=== PATIENT | male | born 1975 | race Two or more races ===

== ENCOUNTER 2016-12-18 10:16 | Emergency (ER) | payer OTHER ==
[~2016-12-18] VITALS: Ht 162.6 cm; Wt 105.0 kg
[~2016-12-18 10:16] MED LIST: LANT3I SC; NAPR-688 PO
[2016-12-18 10:25] VITALS: Ht 162.6 cm; Wt 105.0 kg
[2016-12-18] MEDS ORDERED: NITROGLYCERIN 2% 1 GM OINT PKT TD STA (10:40)
[2016-12-18] MEDS ORDERED: NITROGLYCERIN (SL) 0.4 MG TAB SL PRN ×2 (11:00→14:00)
[2016-12-18 11:20] LABS: BASOPHILS % 0.3 % (0.0-2.0); EOSINOPHILS % 0.3 % (0.0-7.0); HEMATOCRIT 44.4 % (42.0-52.0); LYMPHOCYTES # 1.6 10^3/ul (0.8-2.9); LYMPHOCYTES % 16.5 % (15.0-51.0); MEAN CORPUSCULAR HEMOGLOBIN 24.4 pg (29.0-33.0); MEAN CORPUSCULAR HGB CONC 31.5 g/dl (32.0-37.0); MEAN CORPUSCULAR VOLUME 77.5 fl (82.0-101.0); MEAN PLATELET VOLUME 8.8 fl (7.4-10.4); MONOCYTE # 0.4 10^3/ul (0.3-0.9); MONOCYTES % 3.8 % (0.0-11.0); NEUTROPHIL # 7.7 10^3/ul (1.6-7.5); NEUTROPHILS % 78.9 % (39.0-77.0); PLATELET COUNT 328 10^3/UL (140-415); RED BLOOD COUNT 5.73 10^6/ul (4.70-6.10); RED CELL DISTRIBUTION WIDTH 14.4 % (11.5-14.5); WHITE BLOOD COUNT 9.8 10^3/ul (4.8-10.8)
[2016-12-18 11:29] LABS: CHLORIDE 99 mmol/L (97-110)
[2016-12-18 11:30] LABS: POTASSIUM 3.9 mmol/L (3.5-5.1); SODIUM 139 mmol/L (135-144)
[2016-12-18 11:32] LABS: CREATININE 0.69 mg/dl (0.61-1.24); INR 0.99; PROTIME 13.1 Sec (12.2-14.2)
[2016-12-18 11:33] LABS: ANION GAP 16 (8-16); BLOOD UREA NITROGEN 14 mg/dl (7-20); CALCIUM 8.7 mg/dl (8.4-10.2); CARBON DIOXIDE 28 mmol/L (21-31); GLUCOSE 170 mg/dl (70-220); PARTIAL THROMBOPLASTIN TIME 28.6 Sec (25.0-35.0)
--- NOTE | 2016-12-18 11:56 | RADRPT ---
PROCEDURE: XR Chest. CLINICAL INDICATION: Chest pain TECHNIQUE: Chest AP portable. COMPARISON: 05/01/2016 FINDINGS: The mediastinal structures are unremarkable. The heart is normal in size and configuration. The pu lmonary vascularity is normal. The lung velazquez are unremarkable. No consolidation is identified. The pleural spaces are unremarkable. The axial skeleton is unremarkable. IMPRESSION: No active intrathoracic disease. RPTAT: HGDB .Claudio Coon MD, MD Date Time Electronically viewed and signed by .Claudio Coon MD, MD on 12/18/2016 11:55 .B/
[2016-12-18 11:57] LABS: TROPONIN-I < 0.012 ng/ml (0.00-0.12)
[2016-12-18] MEDS ORDERED: ACETAMINOPHEN 325 MG TAB PO PRN ×2 (13:30→14:00)
[2016-12-18] MEDS ORDERED: ONDANSETRON 4 MG INJ IV PRN ×2 (13:30→14:00)
[2016-12-18] MEDS ORDERED: ACETAMINOPHEN 325 MG TAB PO ONE (13:30)
--- NOTE | 2016-12-18 13:52 | HP ---
Date/Time of Note Date/Time of Note DATE: 12/18/16 TIME: 13:43 Assessment/Plan VTE Prophylaxis VTE Prophylaxis Intervention: LMWH Lines/Catheters IV Catheter Type (from Nrs): Saline Lock Assessment/Plan Assessment/Plan 41 yo male with a past medical history of morbid obesity, type II DM, who presents with chest pain for the last 2 days. 1. Chest pain - ACS vs atypical chest pain - will admit the patient to telemetry , cycle cardiac markers, check TSH/Mag, obtain another 2D ECHO, consult Cardio for possible stress test, serial EKG's, lipid panel, morphine/oxygen/NTG SL prn/ aspirin 2. Type II DM - controlled - check hgba1c, lantus and novolog, ISS 3. Morbid obesity - dietary consult, BMI - 39.7 4. GI ppx - pepcid po 5. DVT ppx - lovenox answered all of his questions. as per clinical course. this history and physical took greater then 45 minutes to complete HPI/ROS Admit Date/Time Admit Date/Time 12/18/2016, 1:43 pm Hx of Present Illness 41 yo male with a past medical history of morbid obesity, type II DM, who presents with chest pain for the last 2 days. He states that the chest pain is substernal, radiating to the left arm, associated with diaphoresis, pressure/ stabbing in nature, 9/10 in intensity, lasting 5 minutes, no alleviating factors , non-reproducible, non-pleuritic in nature, with baby aspirin taken. Patient states for the last several years he has had chest pain with ambulation. Had a an echocardiogram last year, see below, never had a stress test. He complains of dizziness and fatigue. No loss of consciousness, headaches, urinary/bowel irregularities, fevers/chills, nausea/vomiting/diarrhea/constipation or other constitutional symptoms. ED course: nitropaste, nitro SL, tylenol ECHO 12/2015 Conclusions 1. Normal left ventricular systolic function. Mild concentric left ventricular hypertrophy. Ejection fraction is visually estimated at 65 %. Tissue Doppler/Mitral Doppler indices are within normal limits. 2. There is mild enlargement of left atrium. 3. Normal appearance of the mitral valve. Mild mitral valve regurgitation. 4. Normal appearance of the aortic valve. No significant aortic stenosis or insufficiency. 5. Normal appearance of the tricuspid valve. Estimated peak PA systolic pressure 33 mmHg. There is mild tricuspid regurgitation. 6. Normal pulmonic valve appearance. No evidence of pulmonic regurgitation. 7. Normal aortic root. 8. The IVC is not well visualized. ROS 14 point review of systems completed, please refer to HPI for any positive findings PMH/Family/Social Past Medical History morbid obesity Medical History: diabetes Past Surgical History Past Surgical Hx: no surgical history Family History Significant Family History: heart disease (father of [place], unknown age), diabetes (mother) Social History Alcohol Use: none Smoking Status: Never smoker Drug Use: none Exam/Review of Systems Vital Signs Vitals Vital Signs Date Time Temp Pulse Resp B/P Pulse Ox O2 Delivery O2 Flow Rate FiO2 12/18/16 13:00 97.7 95 18 138/91 96 Room Air Exam Exam Gen Kylee: mild distress 2/2 chest pain, AAOx4, morbidly obese male HEENT: NC/AT, PERRLA, EOMI, no pharyngeal erythema, no tonsillar exudates, no lymphadenopathy, no JVD, no carotid bruits NECK: supple, no thyromegaly THORAX: symmetrical, no obvious deformities CV: S1S2, RRR, no M/G/R, distant heart sounds 2/2 to body habitus Lungs: CTAB no W/C/R/R Abd: soft, NT/ND, +BS, no rebound, no guarding, neg HSM EXT: 1+ pitting edema bilateral lower extremities, no ecchymosis, no clubbing, FROM Neuro: CN II-XII grossly intact, no focal deficits Psych: good mentation, alert and oriented, good mood and affect Skin: C/D/I Labs Result Diagram: 12/18/16 1055 12/18/16 1055 Procedures Procedures CXR IMPRESSION: No active intrathoracic disease. EKATERINA SAUCEDO MD Dec 18, 2016 13:52
[2016-12-18] MEDS ORDERED: LORAZEPAM 2 MG INJ IV PRN (14:00)
[2016-12-18] MEDS ORDERED: DOCUSATE SODIUM 100 MG CAP PO PRN (14:00)
[2016-12-18] MEDS ORDERED: morphine 2 MG INJ IV PRN (14:00)
[2016-12-18] MEDS ORDERED: GLUCOSE GEL 15 GRAM TUBE BUCCAL PRN (14:00)
[2016-12-18] MEDS ORDERED: NACL 0.9% 3 ML SYG IV SCH (14:00)
[2016-12-18] MEDS ORDERED: GLUCOSE GEL 15 GRAM TUBE PO PRN ×2 (14:00)
[2016-12-18] MEDS ORDERED: GLUCAGON 1 MG INJ IM PRN (14:00)
[2016-12-18] MEDS ORDERED: DEXTROSE 50% 50 ML SYRINGE IV PRN ×2 (14:00)
--- NOTE | 2016-12-18 14:47 | ERA ---
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 The patient was brought in by ambulance. He was given aspirin and nitroglycerin. He has left-sided chest pain. He said that he was sweating when he woke up. The symptoms started this morning. He feels dizziness and it radiates to the left arm. He said that he felt better after the nitroglycerin. He was seen at the [place] emergency department on Thursday but was discharge at that time. Upon review of old medical records this is the patient's third visit to the ER since December 2015. ROS All systems reviewed and are negative except as per history of present illness. Medications Home Meds Active Scripts Naproxen* (Naproxen*) 500 Mg Tablet, 500 MG PO BID, #20 TAB Prov:AMYLIT 05/02/16 Reported Medications Insulin Glargine* (Lantus*) 100 Unit/Ml Soln, 22 UNIT SC QHS, #10 12/15/15 Allergies Allergies: Coded Allergies: No Known Allergy (Unverified , 12/18/16) PMhx/Soc History of Surgery: No Anesthesia Reaction: No Hx Neurological Disorder: No Hx Respiratory Disorders: No Hx Cardiac Disorders: No Hx Psychiatric Problems: No Hx Miscellaneous Medical Probl: Yes (DM) Hx Alcohol Use: No Hx Substance Use: Yes (marijuana, quit) Hx Tobacco Use: No Smoking Status: Never smoker FmHx Family History: coronary disease Physical Exam Vitals Vital Signs Date Time Temp Pulse Resp B/P Pulse Ox O2 Delivery O2 Flow Rate FiO2 12/18/16 14:38 86 15 129/96 Room Air 12/18/16 13:00 97.7 95 18 138/91 96 Room Air 12/18/16 11:30 97.7 88 18 135/88 98 Nasal Cannula 2.0 12/18/16 10:41 Nasal Cannula 2 12/18/16 10:25 98.2 88 18 126/79 95 Physical Exam Const: No acute distress Head: Atraumatic Eyes: Normal Conjunctiva ENT: Normal External Ears, Nose and Mouth. Neck: Full range of motion..~ No meningismus. Resp: Clear to auscultation bilaterally Cardio: Regular rate and rhythm, no murmurs Abd: Soft, non tender, non distended. Normal bowel sounds Skin: No petechiae or rashes Back: No midline or flank tenderness Ext: No cyanosis, or edema Neur: Awake and alert Psych: Normal Mood and Affect Result Diagram: 12/18/16 1055 12/18/16 1055 Results 24 hrs Laboratory Tests Test 12/18/16 10:55 Activated Partial Thromboplast Time 28.6Sec Anion Gap 16 Basophils # 0.010^3/ul Basophils % 0.3% Blood Urea Nitrogen 14mg/dl Calcium Level 8.7mg/dl Carbon Dioxide Level 28mmol/L Chloride Level 99mmol/L Creatinine 0.69mg/dl Eosinophils # 0.010^3/ul Eosinophils % 0.3% Glucose Level 170mg/dl Hematocrit 44.4% Hemoglobin 14.0g/dl INR International Normalized Ratio 0.99 Lymphocytes # 1.610^3/ul Lymphocytes % 16.5% Mean Corpuscular Hemoglobin 24.4pg Mean Corpuscular Hemoglobin Concent 31.5g/dl Mean Corpuscular Volume 77.5fl Mean Platelet Volume 8.8fl Monocytes # 0.410^3/ul Monocytes % 3.8% Neutrophils # 7.710^3/ul Neutrophils % 78.9% Nucleated Red Blood Cells # 0.010^3/ul Nucleated Red Blood Cells % 0.0/100WBC Platelet Count 70795^3/UL Potassium Level 3.9mmol/L Prothrombin Time 13.1Sec Prothrombin Time Ratio 1.0 Red Blood Count 5.7310^6/ul Red Cell Distribution Width 14.4% Sodium Level 139mmol/L Troponin I < 0.012ng/ml White Blood Count 9.810^3/ul Current Medications Medications (Trade) Dose Ordered Sig/Batsheva Route PRN Reason Start Time Stop Time Status Last Admin Dose Admin Nitroglycerin (Nitroglycerin 2% Oint) 1 inch ONCE STAT TD 12/18/16 10:40 12/18/16 10:43 DC 12/18/16 11:02 Nitroglycerin (Nitroglycerin (Sl Tab) 0.4 Mg) 1 tab Q5M UP TO 3 DOSES PRN SL CHEST PAIN 12/18/16 11:00 12/18/16 13:53 DC Acetaminophen (Tylenol Tab) 650 mg ONCE ONCE PO 12/18/16 13:30 12/18/16 13:31 DC 12/18/16 13:15 Ondansetron HCl (Zofran Inj) 4 mg ER BRIDGE PRN IV NAUSEA AND/OR VOMITING 12/18/16 13:30 12/18/16 13:54 DC Acetaminophen (Tylenol Tab) 650 mg ER BRIDGE PRN PO MILD PAIN/FEVER 12/18/16 13:30 12/18/16 13:54 DC IV Flush (NS 3 ml) 3 ml PER PROTOCOL IV 12/18/16 14:00 Lorazepam (Ativan) 0.5 mg Q6H PRN IV ANXIETY 12/18/16 14:00 Ondansetron HCl (Zofran Inj) 4 mg Q6H PRN IV NAUSEA AND/OR VOMITING 12/18/16 14:00 Aspirin (Aspirin) 81 mg DAILY PO 12/19/16 09:00 Nitroglycerin (Nitroglycerin (Sl Tab) 0.4 Mg) 1 tab Q5M PRN SL CHEST PAIN 12/18/16 14:00 Acetaminophen (Tylenol Tab) 650 mg Q6H PRN PO PAIN LEVEL 1-3 OR FEVER 12/18/16 14:00 Morphine Sulfate (morphine) 2 mg Q4H PRN IV PAIN LEVEL 7-10 12/18/16 14:00 Docusate Sodium (Colace) 100 mg Q12H PRN PO CONSTIPATION 12/18/16 14:00 Famotidine (Pepcid) 20 mg Q12 PO 12/18/16 21:00 Enoxaparin Sodium (Lovenox) 40 mg DAILY SC 12/19/16 09:00 Insulin Aspart (Novolog Insulin Pen) NOVOLOG *MILD* ALGORITHM WITH MEALS BEDTIME SC 12/18/16 18:00 Insulin Glargine (Lantus) 22 unit DAILY@20 SC 12/18/16 20:00 Insulin Aspart (Novolog Insulin Pen) 7 unit WITH MEALS SC 12/18/16 18:00 Miscellaneous Information (* Miscellaneous Pharmacy Order) HYPOGLYCEMIA PROTOCOL w... ONCE ONCE XX 12/18/16 14:00 12/18/16 14:01 DC Miscellaneous Information (* Miscellaneous Pharmacy Order) Discontinue Glyburide, Glipizide,... ONCE ONCE XX 12/18/16 14:00 12/18/16 14:01 DC Miscellaneous Information (* Miscellaneous Pharmacy Order) Discontinue all previ... ONCE ONCE XX 12/18/16 14:00 12/18/16 14:01 DC Miscellaneous Information 1 ea NOTE XX 12/18/16 14:00 Glucose (Glutose) 15 gm Q15M PRN PO DECREASED GLUCOSE 12/18/16 14:00 Glucose (Glutose) 22.5 gm Q15M PRN PO DECREASED GLUCOSE 12/18/16 14:00 Dextrose (D50w Syringe) 25 ml Q15M PRN IV DECREASED GLUCOSE 12/18/16 14:00 Dextrose (D50w Syringe) 50 ml Q15M PRN IV DECREASED GLUCOSE 12/18/16 14:00 Glucagon (Glucagen) 1 mg Q15M PRN IM DECREASED GLUCOSE 12/18/16 14:00 Glucose (Glutose) 15 gm Q15M PRN BUCCAL DECREASED GLUCOSE 12/18/16 14:00 Procedures/MDM EKG #1 read by me: Rate/Rhythm: Regular rate and rhythm at a rate of 83 Intervals: Normal Impression: No evidence of ischemia or arrhythmia EKG #2 pending at this time. Chest x-ray shows no pneumonia or pneumothorax per radiology. Patient is a 41-year-old male with cardiac risk factors who presents with chest pain. He has diabetes and a family history of coronary disease. He has a concerning story for possible acute coronary syndrome. EKG shows no signs of ischemia at this time. Chest x-ray shows no pneumonia or pneumothorax. I doubt pulmonary embolism or aortic dissection. However I am concerned for acute coronary syndrome. The patient received aspirin nitroglycerin by paramedics. The patient will be admitted to the care of Dr. James from the panel team to a telemetry bed. The patient has [facility] insurance and therefore will be admitted to the panel team who admits for [facility]. Departure Diagnosis: Primary Impression: Chest pain Qualified Code: R07.9 - Chest pain, unspecified type Condition: RAYMUNDO Sharma MD Dec 18, 2016 14:47
--- NOTE | 2016-12-18 15:31 | RADRPT ---
Echocardiogram Report Patient Name: JIA RAMIREZ Gender: Male Date: 1975 Study Date: 18-Dec-2016 Child Support Officer: Adi Ramírez RDCS Location: [facility] Ref. Physician: EKATERINA SAUCEDO Quality: Good Procedures: Transthoracic echocardiogram with complete 2D, M-Mode, and doppler examination. Indications: Chest Pain. 2D/M Mode Doppler Measurement Value Normal Ranges Measurement Value Normal Ranges LVIDd 2D 5.7 3.5 - 5.6 cm AV Peak Andrea 1.4 m/sec LVIDs 2D 3.3 2.1 - 4.1 cm AV Peak PG 8.2 mmHg LVPWd 2D 1.0 0.6 - 1.1 cm LVOT Peak Andrea 1.2 m/sec IVSd 2D 1.0 0.6 - 1.1 cm LVOT Peak PG 5.4 mmHg AoR Diam 2D 3.2 2.0 - 3.7 cm MV E Peak Andrea 0.6 m/sec EDV 2D 161.8 cm3 MV A Peak Andrea 0.6 m/sec ESV 2D 37.4 cm3 MV E/A 1.0 LA Dimen 2D 3.4 2.3 - 4.0 cm MV Decel Time 166 msec MV Decel [place] 4 MV E/A 1.0 TR Peak Andrea 2.1 m/sec TR Peak PG 17.3 mmHg RVSP 20.0 mmHg Findings Left Ventricle: Normal left ventricular systolic function. Normal left ventricular cavity size. Normal left ventricular wall thickness. Ejection fraction is visually estimated at 60 %. Tissue Doppler/Mitral Doppler indices are within normal limits. Right Ventricle: Normal right ventricular size. Normal right ventricular systolic function. Left Atrium: The left atrium is normal in size. Right Atrium: The right atrium is normal in size. Mitral Valve: Normal appearance and function of the mitral valve with trace physiologic regurgitation. Aortic Valve: Normal appearance of the aortic valve. No significant aortic stenosis or insufficiency. Tricuspid Valve: Normal appearance of the tricuspid valve. Estimated peak PA systolic pressure 20 mmHg. There is trace tricuspid regurgitation. Pericardium: Normal pericardium with no significant pericardial effusion. Aorta: Normal aortic root. IVC: Normal size and normal respiratory collapse consistent with normal right atrial pressure. Conclusions 1.Normal left ventricular systolic function. Normal left ventricular cavity size. Normal left ventricular wall thickness. Ejection fraction is visually estimated at 60 %. Tissue Doppler/Mitral Doppler indices are within normal limits. 2.Normal right ventricular size. Normal right ventricular systolic function. 3.The left atrium is normal in size. 4.The right atrium is normal in size. 5.No significant valvular stenosis or regurgitation seen. 6.Normal pericardium with no significant pericardial effusion. Electronically Signed By: Mars Enamorado 18-Dec-2016 15:31:22 -0800 Patient Name: JIA RAMIREZ Study Date: 18-Dec-2016 [id number]
[2016-12-18 16:07] LABS: CHOL/HDL RATIO 3.3 RATIO
[2016-12-18 16:39] LABS: THYROID STIMULATING HORMONE 1.41 MIU/L (0.465-4.680)
--- NOTE | 2016-12-18 17:09 | CONS ---
Date/Time of Note Date/Time of Note DATE: 12/18/16 TIME: 16:59 Assessment/Plan Assessment/Plan Additional Assessment/Plan Left shoulder, chest and arm pain Preserved ejection fraction Diabetes History of amphetamine use -Patient's pain is elicited with left arm movements and palpation of chest wall. Initial cardiac enzymes are negative, EKG without significant ischemic abnormalities and echocardiogram within normal limits. Patient's symptoms appear more musculoskeletal in origin but given his risk factors, will obtain serial cardiac enzymes. On review of previous medical records, patient with history of methamphetamine use, would obtain urine drug screen. Consultation Date/Type/Reason Admit Date/Time 12/18/2016, 1:43 pm Type of Consultation: cv Reason for Consultation Chest pain Hx of Present Illness This is a 41-year-old male with history of diabetes who presents with left shoulder and left-sided chest pain. Chest pain began approximately 4-5 days ago. Pain is sharp in nature and radiates from the neck to the shoulder to the chest. Pain is exacerbated with movements of the left arm and with palpation of his chest wall. He is unable to lift his left arm up higher than shoulder level because of pain. He denies associated shortness of breath. The pain has been coming and going for the past 4-5 days. This morning, when patient woke up and sat up in bed, he bent over to get his shoes and became dizzy and lightheaded. This was associated with sweating. Because of the above reasons, he came to the emergency room for further evaluation and care. He otherwise denies exertional chest pain or shortness of breath. He denies any cough. Denies fevers or chills or abdominal pain. 12 point review of systems was performed with all pertinent positives and negatives mentioned above and all else is negative Past Medical History Medical History: diabetes Past Surgical History Past Surgical Hx: no surgical history Family History Significant Family History: other (Possible history of heart disease in his father but patient is not sure) Social History Alcohol Use: none Smoking Status: Never smoker Drug Use: none, other (History of methamphetamine use) Exam/Review of Systems Vital Signs Vitals Vital Signs Date Time Temp Pulse Resp B/P Pulse Ox O2 Delivery O2 Flow Rate FiO2 12/18/16 14:38 86 15 129/96 Room Air 12/18/16 13:00 97.7 96 Exam No apparent distress Constitutional: alert, obese, oriented Head: normocephalic Neck: supple Respiratory: clear to auscultation, normal air movement Cardiovascular: other (S1-S2 heard, no murmurs appreciated), regular rate and rhythm Gastrointestinal: bowel sounds, non-tender, other (No guarding), soft Musculoskeletal: other (Pain with palpation of left shoulder and left side of neck. Pain with range of motion with left arm. Pain with palpation of chest wall. Pain elicited with palpation the same pain patient complaining of) Results Result Diagram: 12/18/16 1055 12/18/16 1055 Results 24 hrs Laboratory Tests Test 12/18/16 10:30 12/18/16 10:55 Cholesterol Level 173 Cholesterol/HDL Ratio 3.3 HDL Cholesterol 51 LDL Cholesterol, Calculated 98 Magnesium Level 2.0 Thyroid Stimulating Hormone (TSH) 1.410 Triglycerides Level 119 Activated Partial Thromboplast Time 28.6 Anion Gap 16 Basophils # 0.0 Basophils % 0.3 Blood Urea Nitrogen 14 Calcium Level 8.7 Carbon Dioxide Level 28 Chloride Level 99 Creatinine 0.69 Eosinophils # 0.0 Eosinophils % 0.3 Glucose Level 170 Hematocrit 44.4 Hemoglobin 14.0 INR International Normalized Ratio 0.99 Lymphocytes # 1.6 Lymphocytes % 16.5 Mean Corpuscular Hemoglobin 24.4 L Mean Corpuscular Hemoglobin Concent 31.5 L Mean Corpuscular Volume 77.5 L Mean Platelet Volume 8.8 Monocytes # 0.4 Monocytes % 3.8 Neutrophils # 7.7 H Neutrophils % 78.9 H Nucleated Red Blood Cells # 0.0 Nucleated Red Blood Cells % 0.0 Platelet Count 328 Potassium Level 3.9 Prothrombin Time 13.1 Prothrombin Time Ratio 1.0 Red Blood Count 5.73 Red Cell Distribution Width 14.4 Sodium Level 139 Troponin I < 0.012 White Blood Count 9.8 # Medications Medications Current Medications Lorazepam (Ativan) 0.5 mg Q6H PRN IV ANXIETY; Start 12/18/16 at 14:00 Ondansetron HCl (Zofran Inj) 4 mg Q6H PRN IV NAUSEA AND/OR VOMITING; Start 12/18 at 14:00 Aspirin (Aspirin) 81 mg DAILY PO ; Start 12/19/16 at 09:00 Nitroglycerin (Nitroglycerin (Sl Tab) 0.4 Mg) 1 tab Q5M PRN SL CHEST PAIN; Start 12/18/16 at 14:00 Acetaminophen (Tylenol Tab) 650 mg Q6H PRN PO PAIN LEVEL 1-3 OR FEVER; Start at 14:00 Morphine Sulfate (morphine) 2 mg Q4H PRN IV PAIN LEVEL 7-10; Start 12/18/16 at 14:00 Docusate Sodium (Colace) 100 mg Q12H PRN PO CONSTIPATION; Start 12/18/16 at 14: 00 Famotidine (Pepcid) 20 mg Q12 PO ; Start 12/18/16 at 21:00 Enoxaparin Sodium (Lovenox) 40 mg DAILY SC ; Start 12/19/16 at 09:00 Insulin Glargine (Lantus) 22 unit DAILY@20 SC ; Start 12/18/16 at 20:00 Miscellaneous Information 1 ea NOTE XX ; Start 12/18/16 at 14:00 Glucose (Glutose) 15 gm Q15M PRN PO DECREASED GLUCOSE; Start 12/18/16 at 14:00 Glucose (Glutose) 22.5 gm Q15M PRN PO DECREASED GLUCOSE; Start 12/18/16 at 14:00 Dextrose (D50w Syringe) 25 ml Q15M PRN IV DECREASED GLUCOSE; Start 12/18/16 at 14:00 Dextrose (D50w Syringe) 50 ml Q15M PRN IV DECREASED GLUCOSE; Start 12/18/16 at 14:00 Glucagon (Glucagen) 1 mg Q15M PRN IM DECREASED GLUCOSE; Start 12/18/16 at 14:00 Glucose (Glutose) 15 gm Q15M PRN BUCCAL DECREASED GLUCOSE; Start 12/18/16 at 14: 00 Procedures Procedures ECG demonstrates sinus rhythm at 83 bpm, QRS 94 ms, no significant ischemic STT wave abnormalities Mars Enamorado DO Dec 18, 2016 17:08
[2016-12-18 17:20] LABS: CREATINE KINASE 87 IU/L (23-200)
[2016-12-18 17:33] LABS: CK-MB 1.18 ng/ml (0.0-2.4); TROPONIN-I < 0.012 ng/ml (0.00-0.12)
[2016-12-18] MEDS ORDERED: INSULIN ASPART [NOVOLOG] 3 ML PEN SC SCH ×2 (18:00)
[2016-12-18 18:31] VITALS: BP 128/77; PULSE 90; RESP 16; TEMP 98
[2016-12-18] MEDS ORDERED: INSULIN GLARGINE [LANtus] 3 ML PEN SC SCH (20:00)
[2016-12-18] MEDS ORDERED: FAMOTIDINE 20 MG TAB PO SCH (21:00)
[2016-12-19] MEDS ORDERED: ENOXAPARIN 40 MG/0.4 ML SYG SC SCH (09:00)
[2016-12-19] MEDS ORDERED: ASPIRIN 81 MG TAB PO SCH (09:00)
--- NOTE | 2016-12-19 17:56 | DS ---
DATE OF ADMISSION: 12/18/2016 DATE OF DISCHARGE: 12/18/2016 The patient left against medical advice. FINAL DIAGNOSES: 1. Chest pain, acute coronary syndrome. At this time, cannot rule out completely. 2. Type 2 diabetes, controlled. 3. Morbid obesity. HOSPITAL COURSE: A 41-year-old male with past medical history of morbid obesity, type 2 diabetes, w ho presented with chest pain for 2 days' duration. This has been going on for last several years. Substernal radiating to left arm associated with diaphoresis versus stabbing in nature. He was supp osed to see his primary care physician at 2 p.m. but had chest pain, came in for further evaluation and treatment. Subsequently, he was going to be admitted to telemetry at this time. The patient le ft AMA. He did have an echocardiogram that was completed that showed: Normal left ventricular systolic function, left ventricular cavity size, normal left ventricular wal l thickness, ejection fraction visually estimated at 60%. Tissue Doppler and mitral Doppler indices within normal limits, normal right ventricular size, normal right ventricular systolic function, le ft atrium is normal in size. Right atrium is normal in size. No significant valvular stenosis or r egurgitation seen. Normal pericardium with no significant pericardial effusion. Chest x-ray was al so completed showing no active intrathoracic disease. LABORATORY VALUES: White count was within normal limits. H and H within normal limits. Chemistry showed a hemoglobin A1c of 6.8, otherwise troponins x2 was less than 0.012. TSH of 1.4 and LDL 98, HDL 51. Coags were within normal limits. Subsequently, again, the patient left AMA. DISPOSITION: Home. CONDITION: Fair. DISCHARGE MEDICATIONS: As per the patient. FOLLOWUP: The patient will follow up at his own discretion to his primary care physician. This coordination of discharge took greater than 30 minutes. Dictated By: EKATERINA WONG/STEFAN Conf#: [id number] DID#: [id number]
== END 2016-12-18 18:30 | disposition left against medical advice (07) ==
LOC: E/R 10:16
DX: R07.9 Chest pain, unspecified (principal); E11.9 Type 2 diabetes mellitus without complications; Z79.4 Long term (current) use of insulin
CPT/HCPCS: 36415; 71010; 80048; 80061; 82550; 82553; 83036; 83735; 84443; 84484; 85025; 85610; 85730; 93005; 93306; Z7502; Z7610; J1815

== ENCOUNTER 2017-01-25 12:57 | Inpatient (IN) | payer OTHER ==
[~2017-01-25] VITALS: Ht 167.6 cm; Wt 126.6 kg
--- NOTE | 2017-01-25 13:11 | ERA ---
ER Documentation Chief Complaint Date/Time DATE: 01/25/17 TIME: 13:05 Chief Complaint HPI 41-year-old male history of borderline hypertension, diabetes, obesity who presents to the emergency room with chest pain. The patient states that intermittently in the past he has had chest pain. Today while driving he had substernal chest pressure that was somewhat sudden, nonradiating with associated mild shortness of breath. No pleuritic pain, no calf swelling. No recent travel or immobilization. The patient has been emotional with EMS but his chest pain was completely alleviated with aspirin and nitroglycerin. He states in the past that he has had an angiogram approximately 4 years ago but does not recall the results. He does not think that he was stented. ROS All systems reviewed and are negative except as per history of present illness. Medications Home Meds Reported Medications Aspirin* (Aspirin* EC) 81 Mg Tablet.dr, 81 MG PO DAILY, TAB 01/25/17 Insulin Glargine* (Lantus*) 100 Unit/Ml Soln, 22 UNIT SC QHS, #10 12/15/15 Discontinued Scripts Naproxen* (Naproxen*) 500 Mg Tablet, 500 MG PO BID, #20 TAB Prov:LIT REYES DO 05/02/16 Allergies Allergies: Coded Allergies: No Known Allergy (Unverified , 01/25/17) PMhx/Soc History of Surgery: No Anesthesia Reaction: No Hx Neurological Disorder: No Hx Respiratory Disorders: No Hx Cardiac Disorders: No Hx Psychiatric Problems: No Hx Miscellaneous Medical Probl: Yes (DM) Hx Alcohol Use: No Hx Substance Use: Yes (marijuana, quit) Hx Tobacco Use: No FmHx Family History: diabetes Physical Exam Vitals Vital Signs Date Time Temp Pulse Resp B/P Pulse Ox O2 Delivery O2 Flow Rate FiO2 01/25/17 15:58 98.0 101 11 125/84 100 Nasal Cannula 2.0 01/25/17 13:42 106 14 110/83 97 Nasal Cannula 2.0 01/25/17 13:35 Nasal Cannula 2 01/25/17 13:34 98.0 105 24 109/80 95 01/25/17 13:33 97.8 106 18 109/80 95 VS reviewed, please see EMR Physical Exam General: Well developed, well nourished, no acute distress Head: Normocephalic, atraumatic. Eyes: Pupils equally reactive, EOM intact ENT: Moist mucous membranes Neck: Supple, no lymphadenopathy Respiratory: Lungs clear bilaterally, no distress Cardiovascular: RRR, no murmurs, rubs, or gallops Abdominal: Soft, non-tender, non-distended, no peritoneal signs : Deferred MSK: No edema, no unilateral swelling, 5/5 strength, no pulse deficits Neurologic: Alert and oriented, moving all extremities, normal speech, no focal weakness, no cerebellar signs Skin: No rash Psych: Normal mood Result Diagram: 01/25/17 1332 01/25/17 1332 Results 24 hrs Laboratory Tests Test 01/25/17 13:32 Activated Partial Thromboplast Time 26.2Sec Anion Gap 17 Basophils # 0.010^3/ul Basophils % 0.3% Blood Urea Nitrogen 18mg/dl Calcium Level 8.6mg/dl Carbon Dioxide Level 24mmol/L Chloride Level 103mmol/L Creatinine 0.83mg/dl D-Dimer 324.57ng/ml D-Dimer Comment Eosinophils # 0.110^3/ul Eosinophils % 0.4% Glucose Level 100mg/dl Hematocrit 44.0% Hemoglobin 14.2g/dl INR International Normalized Ratio 0.94 Lymphocytes # 2.610^3/ul Lymphocytes % 16.5% Mean Corpuscular Hemoglobin 24.5pg Mean Corpuscular Hemoglobin Concent 32.3g/dl Mean Corpuscular Volume 76.0fl Mean Platelet Volume 8.3fl Monocytes # 0.810^3/ul Monocytes % 5.4% Neutrophils # 11.910^3/ul Neutrophils % 77.0% Nucleated Red Blood Cells # 0.010^3/ul Nucleated Red Blood Cells % 0.0/100WBC Platelet Count 85189^3/UL Potassium Level 3.9mmol/L Prothrombin Time 12.6Sec Prothrombin Time Ratio 1.0 Red Blood Count 5.7910^6/ul Red Cell Distribution Width 14.4% Sodium Level 140mmol/L Troponin I 0.046ng/ml White Blood Count 15.510^3/ul Procedures/MDM EKG, MONITORS, & DIAGNOSTIC IMAGING: EKG: I reviewed and interpreted a 12-lead EKG. Rhythm: Normal sinus rhythm Ectopy: None Intervals: No abnormalities ST segments: No elevations or depressions T waves: No contiguous inversions Repeat EKG: EKG: I reviewed and interpreted a 12-lead EKG. Rhythm: Normal sinus rhythm Ectopy: None Intervals: No abnormalities ST segments: No elevations or depressions T waves: No contiguous inversions Chest x-ray: I reviewed and interpreted a 1 view of the chest Mediastinum: No enlargement Cardiac silhouette: No cardiomegaly Airspace: Clear lung velazquez bilaterally without evidence of pneumothorax Bones: No evidence of fracture LAB INTERPRETATION: Leukocytosis without left shift likely secondary to stress response, negative troponin, negative d-dimer. MEDICAL DECISION MAKING: The patient's history, physical exam and clinical presentation is concerning for possible cardiogenic etiology and acute coronary syndrome. Lower clinical concern for pulmonary embolism however the patient has slight tachycardia in sudden onset of symptoms. D-dimer will be appropriate. However no significant risk factors for this. Anxiety may be playing a role. Based on the patient's clinical exam and history and risk factors, I have a much lower clinical concern for pulmonary embolism, acute aortic dissection, pneumothorax, pneumonia, cardiac tamponade HEART Score: 4 MACE Rate: 16.6% Shared Decision Making: We had a conversation regarding risk stratification, MACE rate, and the risks, benefits, alternatives of disposition planning options. Disposition planning: Given the patient's elevated risk factor profile despite the patient's age I would recommend inpatient hospitalization. It has been 4 years since angiogram. The patient may benefit from provocative testing. She is agreeable. ER COURSE: Patient is chest pain-free upon arrival. Aspirin and nitro already provided by EMS. The patient's leukocytosis is nonspecific. I do not believe this is consistent with infectious process. Likely secondary to stress response. Given the patient's risk factor profile inpatient hospitalization is appropriate. He may remains chest pain-free. I kept the patient and/or family informed of laboratory and diagnostic imaging results throughout the emergency room course. DISPOSITION PLAN: Telemetry admission for management of chest pain, risk stratification and rule out of acute coronary syndrome. CONSULTATION: Accepting care team and consultations: I discussed the current laboratory data, diagnostic imaging and emergency care provided. Admitting team: Dr. Phelps Admitting team indication: Insurance directed Departure Diagnosis: Primary Impression: Chest pain Qualified Code: R07.9 - Chest pain, unspecified type Additional Impression: Leukocytosis Qualified Code: D72.829 - Leukocytosis, unspecified type Condition: Stable CAILIN MORA MD Jan 25, 2017 13:10
--- NOTE | 2017-01-25 13:17 | RADRPT ---
PROCEDURE: XR Chest AP portable CLINICAL INDICATION: Chest pain TECHNIQUE: An AP portable radiograph of the chest was submitted. COMPARISON: 12/18/2016 FINDINGS: Support Hardware: None Cardiovascular: The cardiovascular silhouette appears unremarkable. Lung Velazquez: The lung velazquez appear clear with no nodule, alveolar infiltrate, or interstitial promi nence evident. Pleural Spaces: No pneumothorax or pleural effusion is identified. Osseous Structures: The osseous structures appear intact. Soft Tissues: The soft tissues appear unremarkable. IMPRESSION: Stable and unremarkable portable chest. Physician Claudine Date Time Electronically viewed and signed by Gelacio Pope Physician on 01/25/2017 13:16 /
[2017-01-25] MEDS ORDERED: ASPI-664 PO (13:25)
[2017-01-25 13:47] LABS: ADD SCAN DIFF NO
[2017-01-25 13:49] LABS: BASOPHILS % 0.3 % (0.0-2.0); EOSINOPHILS # 0.1 10^3/ul (0.0-0.5); EOSINOPHILS % 0.4 % (0.0-7.0); HEMOGLOBIN 14.2 g/dl (14.0-18.0); LYMPHOCYTES # 2.6 10^3/ul (0.8-2.9); LYMPHOCYTES % 16.5 % (15.0-51.0); MEAN CORPUSCULAR HEMOGLOBIN 24.5 pg (29.0-33.0); MEAN CORPUSCULAR HGB CONC 32.3 g/dl (32.0-37.0); MEAN PLATELET VOLUME 8.3 fl (7.4-10.4); MONOCYTE # 0.8 10^3/ul (0.3-0.9); MONOCYTES % 5.4 % (0.0-11.0); NEUTROPHIL # 11.9 10^3/ul (1.6-7.5); PLATELET COUNT 356 10^3/UL (140-415); RED BLOOD COUNT 5.79 10^6/ul (4.70-6.10); RED CELL DISTRIBUTION WIDTH 14.4 % (11.5-14.5); WHITE BLOOD COUNT 15.5 10^3/ul (4.8-10.8)
[2017-01-25 13:58] LABS: POTASSIUM 3.9 mmol/L (3.5-5.1)
[2017-01-25 14:00] LABS: CREATININE 0.83 mg/dl (0.61-1.24)
[2017-01-25 14:01] LABS: CALCIUM 8.6 mg/dl (8.4-10.2)
[2017-01-25 14:02] LABS: INR 0.94; PROTIME 12.6 Sec (12.2-14.2)
[2017-01-25 14:03] LABS: PARTIAL THROMBOPLASTIN TIME 26.2 Sec (25.0-35.0)
[2017-01-25 14:05] LABS: D-DIMER 324.57 ng/ml (<460)
[2017-01-25 14:12] LABS: TROPONIN-I 0.046 ng/ml (0.00-0.12)
[2017-01-25] MEDS ORDERED: ACETAMINOPHEN 325 MG TAB PO PRN (16:30)
[2017-01-25] MEDS ORDERED: ONDANSETRON 4 MG INJ IV PRN (16:30)
[2017-01-25] MEDS ORDERED: GLUCAGON 1 MG INJ IM PRN (18:00)
[2017-01-25] MEDS ORDERED: GLUCOSE GEL 15 GRAM TUBE BUCCAL PRN (18:00)
[2017-01-25] MEDS ORDERED: DEXTROSE 50% 50 ML SYRINGE IV PRN ×2 (18:00)
[2017-01-25] MEDS ORDERED: GLUCOSE GEL 15 GRAM TUBE PO PRN ×2 (18:00)
[2017-01-25] MEDS ORDERED: ALPRAZOLAM 0.25 MG TAB PO PRN (18:00)
[2017-01-25] MEDS ORDERED: LORAZEPAM 2 MG INJ ONE (19:59)
[2017-01-25 20:00] VITALS: TEMP 98
[2017-01-25] MEDS ORDERED: LORAZEPAM 2 MG INJ IV ONE (20:00)
[2017-01-25] MEDS: INSULIN ASPART [NOVOLOG] 3 ML PEN SC SCH ×2 (21:00→21:08)
[2017-01-25] MEDS: INSULIN GLARGINE [LANtus] 3 ML PEN SC SCH (21:16)
[2017-01-25] MEDS: METOPROLOL 25 MG TAB PO SCH (23:11)
[2017-01-26] VITALS (12 sets, daily range): BP systolic 104–140; BP diastolic 52–95; PULSE 64–90; RESP 16–20; Ht 167.6 cm; Wt 126.6 kg
[2017-01-26 07:11] LABS: ADD UMIC NO; URINE BILIRUBIN (Dip) NEGATIVE (NEGATIVE); URINE BLOOD (Dip) NEGATIVE (NEGATIVE); URINE COLOR LT. YELLOW (YELLOW); URINE GLUCOSE (Dip) NEGATIVE (NEGATIVE); URINE KETONES (Dip) NEGATIVE (NEGATIVE); URINE LEUKOCYTE ESTERASE (Dip) NEGATIVE (NEGATIVE); URINE NITRITE (Dip) NEGATIVE (NEGATIVE); URINE TOTAL PROTEIN (Dip) NEGATIVE (NEGATIVE); URINE UROBILINOGEN (Dip) 0.2 E.U./dL (0.1-1.0)
[2017-01-26 07:30] LABS: ADD SCAN DIFF NO
[2017-01-26 07:32] LABS: BARBITURATES Negative (NEGATIVE); BENZODIAZEPINES Negative (NEGATIVE); CANNABINOIDS Negative (NEGATIVE); COCAINE Negative (NEGATIVE); OPIATES Negative (NEGATIVE)
--- NOTE | 2017-01-26 07:43 | HP ---
DATE OF ADMISSION: 01/25/2017 CHIEF COMPLAINT: Chest pain. HISTORY OF PRESENT ILLNESS: This is a 41-year-old male with history of morbid obesity as well as ignacio spect dyslipidemia, and diabetes who came to [facility] due to reports of chest pa in. Of note, the patient was hospitalized at [facility] in December 2016. At [facility] t time, he was seen by pattern hand and did have an echocardiogram with ejection fraction noted at 6 3%. He was seen by cardiology at the time, but he did leave against medical advice and we were not able to finish complete diagnostic workup for the patient. Of note, at that time, he had troponins that were negative there. The patient is again for chest pain. He did report that he had chest pain this afternoon when he wa s driving. He did report chest pain was substernal and radiated to the left side of chest into his left arm. He did report pain was pressure-like in nature, 10/10. He did report he pulled over to t he side of the road and an ambulance was called. He did report that he received nitro and after he received nitro, he had relief of his chest pain. On examination at [facility], he did have chest x-ray done on 01/25/2017, that shaan wed a stable an unremarkable x-ray. Initial troponin was 0.046. Also noted with a white count of 1 5.5. He did have a heart rate of 102, afebrile. He is currently seen on room air. Denies any ches t pain at this time. Does report relief after receiving nitro. He did also state that he suspects he might have had a heart attack 4 years ago. He also says he had an angiogram 4 years ago, which bharathi alford does know the results of. We will evaluate him for the aforementioned issues. MEDICAL/SURGICAL HISTORY 1. Diabetes. 2. Morbid obesity. 3. Suspect dyslipidemia. SOCIAL HISTORY: The patient denies any cigarette smoking, alcohol consumption or illicit drug use. ALLERGIES: NO KNOWN ALLERGIES. FAMILY HISTORY: He does report he does have family history of heart disease on the father's side. HOME MEDICATIONS: 1. Aspirin 81 mg p.o. daily. 2. Lantus 22 units subcutaneous at bedtime. REVIEW OF SYSTEMS: A 12-point review of systems obtained and is entirely negative except that menti oned in history of present illness. PHYSICAL EXAMINATION: VITAL SIGNS: Temperature is 98.0, pulse 101, respiratory rate 11, blood pressure is 125/84, pulse o ximetry 100% on 2 liters nasal cannula. GENERAL: This is a 41-year-old male, appears stated age with no apparent distress noted at this carey e. EYES: Pupils equal, round and reactive to light. Anicteric sclerae. NECK: Supple, nontender, no JVD. CARDIOVASCULAR: S1, S2 auscultated, tachycardic. PULMONARY: Minimally diminished at lung bases. No obvious adventitious lung sounds. ABDOMEN: Soft, nontender, nondistended. EXTREMITIES: No edema bilateral lower extremities. SKIN: Warm, dry, and intact. NEUROLOGIC: Alert, oriented x3. LABORATORY DATA: WBC 15.5, hemoglobin 14.2, hematocrit 44.0, platelets are 356. Sodium 140, potass ium 3.9, BUN is 18, creatinine is 0.83. IMAGING: Chest x-ray done on 01/23/2017, did show unremarkable portable chest x-ray. IMPRESSION AND PLAN: 1. Chest pain. Rule out ACS. We will get a pattern hand to follow. Will troponins. Will d efer possible stress test to Cardiology. 2. Diabetes. Continue on insulin regimen. We will adjust as needed. 3. Morbid obesity. Weight reduction advised. ADMISSION PROCESS TIME: 40 minutes. Discussed plan of care with Dr. Shankar. Dictated By: XIOMARA JOSHUA TRUST ADMINISTRATIVE ASSISTANT for PRISCILLA SHANKRA MD RR/NTS Conf#: [id number] DID#: [id number]
[2017-01-26 07:47] LABS: BASOPHILS % 0.2 % (0.0-2.0); EOSINOPHILS # 0.1 10^3/ul (0.0-0.5); EOSINOPHILS % 1.1 % (0.0-7.0); HEMATOCRIT 43.7 % (42.0-52.0); HEMOGLOBIN 13.6 g/dl (14.0-18.0); LYMPHOCYTES # 2.5 10^3/ul (0.8-2.9); LYMPHOCYTES % 25.9 % (15.0-51.0); MEAN CORPUSCULAR HEMOGLOBIN 24.2 pg (29.0-33.0); MEAN CORPUSCULAR HGB CONC 31.1 g/dl (32.0-37.0); MEAN CORPUSCULAR VOLUME 77.9 fl (82.0-101.0); MEAN PLATELET VOLUME 8.7 fl (7.4-10.4); MONOCYTE # 0.6 10^3/ul (0.3-0.9); MONOCYTES % 6.4 % (0.0-11.0); NEUTROPHIL # 6.3 10^3/ul (1.6-7.5); NEUTROPHILS % 66.1 % (39.0-77.0); PLATELET COUNT 343 10^3/UL (140-415); RED BLOOD COUNT 5.61 10^6/ul (4.70-6.10); RED CELL DISTRIBUTION WIDTH 14.6 % (11.5-14.5); WHITE BLOOD COUNT 9.6 10^3/ul (4.8-10.8)
[2017-01-26 07:54] LABS: POTASSIUM 3.7 mmol/L (3.5-5.1)
[2017-01-26] MEDS: INSULIN ASPART [NOVOLOG] 3 ML PEN SC SCH ×4 (07:55→21:48)
[2017-01-26 07:57] LABS: CREATININE 0.85 mg/dl (0.61-1.24)
[2017-01-26 07:58] LABS: CHOL/HDL RATIO 3.2 RATIO; MAGNESIUM 2.3 mg/dl (1.7-2.5)
[2017-01-26 08:22] LABS: THYROID STIMULATING HORMONE 1.95 MIU/L (0.465-4.680)
[2017-01-26 09:31] LABS: ALBUMIN 3.4 g/dl (3.3-4.9)
[2017-01-26 09:34] LABS: BILIRUBIN,INDIRECT 0.7 mg/dl (0-1.1); BILIRUBIN,TOTAL 0.7 mg/dl (0.2-1.3); TOTAL PROTEIN 6.2 g/dl (6.1-8.1)
[2017-01-26] MEDS: ASPIRIN (EC) 81 MG TAB PO SCH (09:42)
[2017-01-26] MEDS: METOPROLOL 25 MG TAB PO SCH ×2 (09:47→20:24)
[2017-01-26] MEDS ORDERED: LORAZEPAM 2 MG INJ ONE (15:23)
[2017-01-26] MEDS ORDERED: LORAZEPAM 2 MG INJ IV ONE (15:30)
--- NOTE | 2017-01-26 16:32 | PN ---
Date/Time of Note Date/Time of Note DATE: 01/26/17 TIME: 16:28 Assessment/Plan VTE Prophylaxis VTE Prophylaxis Intervention: LMWH Lines/Catheters IV Catheter Type (from Nrs): Peripheral IV Urinary Cath still in place: No Assessment/Plan Chief Complaint/Hosp Course A/P 1) Chest pain; ro acs. Possible stress test if he agrees. 2) Ho TIA 3) Substance/ Meth use? 4) Dm/obesity/ metabolic syndrome 5) Ac agitation/ anxiety. Telepsych for any reoccurrence Problems: Subjective 24 Hr Interval Summary Free Text/Dictation S- presently stable. was agitated earlier today/ Code Hodges called. Exam/Review of Systems Vital Signs Vitals Vital Signs Date Time Temp Pulse Resp B/P Pulse Ox O2 Delivery O2 Flow Rate FiO2 01/26/17 15:04 81 136/95 01/26/17 11:54 98.3 20 98 01/25/17 23:05 Room Air 01/25/17 20:30 2.0 Intake and Output 01/25/17 01/25/17 01/26/17 15:00 23:00 07:00 Intake Total 400 ml Output Total 650 ml Balance -250 ml Exam Respiratory: clear to auscultation Cardiovascular: regular rate and rhythm Gastrointestinal: soft (overweight) Extremities: other (no edema/ Eloise's.) Results Result Diagram: 01/26/17 0620 01/26/17 0620 Results 24 hrs Laboratory Tests Test 01/25/17 21:02 01/26/17 02:25 01/26/17 05:00 01/26/17 05:10 Bedside Glucose 104 97 133 Urine Amphetamines Screen POSITIVE Urine Barbiturates Negative Urine Benzodiazepines Screen Negative Urine Cannabinoids Negative Urine Cocaine Screen Negative Urine Opiates Screen Negative Test 01/26/17 06:20 01/26/17 07:55 01/26/17 11:11 01/26/17 11:55 Alanine Aminotransferase (ALT/SGPT) 28 Albumin 3.4 Alkaline Phosphatase 76 Anion Gap 15 Aspartate Amino Transf (AST/SGOT) 20 Basophils # 0.0 Basophils % 0.2 Blood Urea Nitrogen 15 Calcium Level 8.0 L Carbon Dioxide Level 28 Chloride Level 100 Cholesterol Level 144 Cholesterol/HDL Ratio 3.2 Creatinine 0.85 Direct Bilirubin 0.00 Eosinophils # 0.1 Eosinophils % 1.1 Glucose Level 130 HDL Cholesterol 45 Hematocrit 43.7 Hemoglobin 13.6 L Hemoglobin A1c 6.7 H Indirect Bilirubin 0.7 LDL Cholesterol, Calculated 64 Lymphocytes # 2.5 Lymphocytes % 25.9 Magnesium Level 2.3 Mean Corpuscular Hemoglobin 24.2 L Mean Corpuscular Hemoglobin Concent 31.1 L Mean Corpuscular Volume 77.9 L Mean Platelet Volume 8.7 Monocytes # 0.6 Monocytes % 6.4 Neutrophils # 6.3 Neutrophils % 66.1 Nucleated Red Blood Cells # 0.0 Nucleated Red Blood Cells % 0.0 Platelet Count 343 Potassium Level 3.7 Red Blood Count 5.61 Red Cell Distribution Width 14.6 H Sodium Level 139 Thyroid Stimulating Hormone (TSH) 1.950 Total Bilirubin 0.7 Total Protein 6.2 Triglycerides Level 176 H Troponin I 0.015 < 0.012 White Blood Count 9.6 # Bedside Glucose 137 134 Medications Medications Current Medications Aspirin (Halfprin) 81 mg DAILY PO Last administered on 01/26/17 09:42; Admin Dose 81 MG; Start 01/26/17 at 09:00 Insulin Glargine (Lantus) 22 unit QHS SC Last administered on 01/25/17 21:16; Admin Dose 22 UNIT; Start 01/25/17 at 21:00 Metoprolol Tartrate (Lopressor) 12.5 mg BID PO Last administered on 01/26/17 09:47; Admin Dose 12.5 MG; Start 01/25/17 at 21:00 Alprazolam (Xanax) 0.25 mg Q8H PRN PO ANXIETY; Start 01/25/17 at 18:00 Miscellaneous Information 1 ea NOTE XX ; Start 01/25/17 at 18:00 Glucose (Glutose) 15 gm Q15M PRN PO DECREASED GLUCOSE; Start 01/25/17 at 18:00 Glucose (Glutose) 22.5 gm Q15M PRN PO DECREASED GLUCOSE; Start 01/25/17 at 18: 00 Dextrose (D50w Syringe) 25 ml Q15M PRN IV DECREASED GLUCOSE; Start 01/25/17 at 18:00 Dextrose (D50w Syringe) 50 ml Q15M PRN IV DECREASED GLUCOSE; Start 01/25/17 at 18:00 Glucagon (Glucagen) 1 mg Q15M PRN IM DECREASED GLUCOSE; Start 01/25/17 at 18:00 Glucose (Glutose) 15 gm Q15M PRN BUCCAL DECREASED GLUCOSE; Start 01/25/17 at 18 :00 Influenza Virus Vaccine (Fluzone) 0.5 ml ONCE ONCE IM* ; Start 01/27/17 at 09:00 ; Stop 01/27/17 at 09:01 LORY YEUNG MD Jan 26, 2017 16:32
[2017-01-26] MEDS ORDERED: ALPRAZOLAM 0.25 MG TAB PO PRN (18:00)
[2017-01-26] MEDS: INSULIN GLARGINE [LANtus] 3 ML PEN SC SCH (21:47)
[2017-01-27 03:33] VITALS: BP 117/87; RESP 16
[2017-01-27 07:41] VITALS: BP 110/61; RESP 18
[2017-01-27 07:44] LABS: ADD SCAN DIFF NO
[2017-01-27 07:52] LABS: BASOPHILS % 0.3 % (0.0-2.0); EOSINOPHILS # 0.1 10^3/ul (0.0-0.5); HEMATOCRIT 46.7 % (42.0-52.0); HEMOGLOBIN 14.3 g/dl (14.0-18.0); LYMPHOCYTES # 3.5 10^3/ul (0.8-2.9); LYMPHOCYTES % 28.2 % (15.0-51.0); MEAN CORPUSCULAR HEMOGLOBIN 24.5 pg (29.0-33.0); MEAN CORPUSCULAR HGB CONC 30.6 g/dl (32.0-37.0); MEAN PLATELET VOLUME 8.7 fl (7.4-10.4); MONOCYTE # 0.8 10^3/ul (0.3-0.9); MONOCYTES % 6.3 % (0.0-11.0); NEUTROPHIL # 7.9 10^3/ul (1.6-7.5); NEUTROPHILS % 63.9 % (39.0-77.0); PLATELET COUNT 345 10^3/UL (140-415); RED BLOOD COUNT 5.84 10^6/ul (4.70-6.10); RED CELL DISTRIBUTION WIDTH 14.9 % (11.5-14.5); WHITE BLOOD COUNT 12.4 10^3/ul (4.8-10.8)
[2017-01-27] MEDS: INSULIN ASPART [NOVOLOG] 3 ML PEN SC SCH ×4 (08:00→21:00)
[2017-01-27 08:17] LABS: ALBUMIN 3.8 g/dl (3.3-4.9)
[2017-01-27 08:18] LABS: POTASSIUM 4.7 mmol/L (3.5-5.1)
[2017-01-27 08:19] LABS: CREATININE 0.82 mg/dl (0.61-1.24)
[2017-01-27 08:20] LABS: ALBUMIN/GLOBULIN RATIO 1.05; BILIRUBIN,INDIRECT 0.3 mg/dl (0-1.1); BILIRUBIN,TOTAL 0.3 mg/dl (0.2-1.3); CALCIUM 8.4 mg/dl (8.4-10.2); MAGNESIUM 2.3 mg/dl (1.7-2.5); TOTAL PROTEIN 7.4 g/dl (6.1-8.1)
[2017-01-27] MEDS ORDERED: INFLUENZA VIRUS VACCINE 0.5 ML (DISPENSING) IM* ONE (09:00)
[2017-01-27] MEDS: METOPROLOL 25 MG TAB PO SCH ×2 (09:29→21:22)
[2017-01-27] MEDS: ASPIRIN (EC) 81 MG TAB PO SCH (09:30)
[2017-01-27 15:21] LABS: ADD SCAN DIFF NO
[2017-01-27 15:24] LABS: BASOPHILS % 0.3 % (0.0-2.0); EOSINOPHILS # 0.1 10^3/ul (0.0-0.5); EOSINOPHILS % 0.8 % (0.0-7.0); HEMATOCRIT 43.4 % (42.0-52.0); LYMPHOCYTES # 3.2 10^3/ul (0.8-2.9); LYMPHOCYTES % 32.2 % (15.0-51.0); MEAN CORPUSCULAR HEMOGLOBIN 24.9 pg (29.0-33.0); MEAN CORPUSCULAR HGB CONC 32.3 g/dl (32.0-37.0); MEAN CORPUSCULAR VOLUME 77.2 fl (82.0-101.0); MEAN PLATELET VOLUME 8.3 fl (7.4-10.4); MONOCYTE # 0.5 10^3/ul (0.3-0.9); NEUTROPHIL # 6.2 10^3/ul (1.6-7.5); NEUTROPHILS % 61.4 % (39.0-77.0); PLATELET COUNT 309 10^3/UL (140-415); RED BLOOD COUNT 5.62 10^6/ul (4.70-6.10); RED CELL DISTRIBUTION WIDTH 14.4 % (11.5-14.5)
[2017-01-27 15:26] LABS: AADO2 Arterial 63.3 mmHg (7.0-24.0); Allen Test ACCEPTAB; Arterial Base Excess 0.7 mmol/L (-3.0-3); Arterial COHb 0.3 % (0.0-3.0); Arterial Fraction of Oxyhgb 97.8 % (93.0-99.0); Arterial HCO3 25.4 mmol/L (22.0-26.0); Arterial MetHb 0.1 % (0.0-1.5); Arterial Total Hemglobin 14.7 g/dl (12.0-18.0); MODE NASAL CANNULA
--- NOTE | 2017-01-27 16:10 | RADRPT ---
PROCEDURE: XR Chest. CLINICAL INDICATION: Chest pain. TECHNIQUE: Single frontal view. COMPARISON: 01/25/2017. FINDINGS: The lungs are clear. The heart size is normal. There is no pleural effusion. There is no pneumothorax. IMPRESSION: 1. Normal chest radiograph. 2. No change from 01/25/2017. RPTAT: QQ .Giorgio López MD, MD Date Time Electronically viewed and signed by .Giorgio López MD, MD on 01/27/2017 16:10 .R/
[2017-01-27 16:13] LABS: TROPONIN-I < 0.012 ng/ml (0.00-0.12)
--- NOTE | 2017-01-27 16:24 | PN ---
Date/Time of Note Date/Time of Note DATE: 01/27/17 TIME: 16:19 Assessment/Plan VTE Prophylaxis VTE Prophylaxis Intervention: LMWH Lines/Catheters IV [facility] Saline Lock Urinary Cath still in place: No Assessment/Plan Chief Complaint/Hosp Course Subjective: RESEARCH INSTRUMENTATION TECHNICIAN called. Patient had an uneventful night and this morning. He actually ate lunch. Went to sleep. Earlier he was meeting with his sister. While in bed he was heard screaming. Staff evaluated the patient and he was pointing to his chest. After which, He went silent or collapse. He chest was moving the whole time. He may have been mumbling and nodding his head however during this time. After about 10 minutes later after a adequate sternal rub, the patient woke up. When I spoke with him he stated he had chest pain without any known aggravating or relieving factors. Denies any food issues. He had some trouble breathing and shortness of breath but not pleuritic. On further exam he states maybe his legs are swollen. No witnessed diaphoresis nausea vomiting. -RT vitals were unremarkable. Blood sugar 140. EKG sinus rhythm and no evidence of PE. Objective: Vital signs stable No pallor JVD Regular Clear Benign obesity No edema or Homans sign. A/P 1) Chest pain on admission and recurrent; ro acs again. Possible stress test if he agrees. Stable keep on MedSurg. Ro DVT. Probable panic attack. 2) Ho TIA 3) Substance/ Meth use? 4) Dm/obesity/ metabolic syndrome 5) Ac agitation/ anxiety. Telepsych consult called. Patient will have to agree. No family at bedside. Sister was here earlier. 6) Transient hallucinations? May need eval for schizophrenia. Appreciate social service consult. Home support is adequate. No evidence of ideation. 7) Dyspnea with chest pain, rule out DVT. Possible EFRAÍN. Consider outpatient testing. Problems: Exam/Review of Systems Vital Signs Vitals Vital Signs Date Time Temp Pulse Resp B/P Pulse Ox O2 Delivery O2 Flow Rate FiO2 01/27/17 15:07 84 01/27/17 07:41 98.6 18 110/61 96 01/25/17 23:05 Room Air 01/25/17 20:30 2.0 Intake and Output 01/26/17 01/26/17 01/27/17 15:00 23:00 07:00 Intake Total 500 ml 500 ml Balance 500 ml 500 ml Results Result Diagram: 01/27/17 1515 01/27/17 0718 Results 24 hrs Laboratory Tests Test 01/26/17 17:39 01/26/17 20:22 01/27/17 03:07 01/27/17 07:10 Bedside Glucose 118 222 H 101 Lipase 204 Test 01/27/17 07:18 01/27/17 08:04 01/27/17 12:11 01/27/17 14:58 Alanine Aminotransferase (ALT/SGPT) 29 Albumin 3.8 Albumin/Globulin Ratio 1.05 Alkaline Phosphatase 83 Anion Gap 17 H Aspartate Amino Transf (AST/SGOT) 29 Basophils # 0.0 Basophils % 0.3 Blood Urea Nitrogen 20 Calcium Level 8.4 Carbon Dioxide Level 29 Chloride Level 101 Creatinine 0.82 Direct Bilirubin 0.00 Eosinophils # 0.1 Eosinophils % 1.0 Globulin 3.60 H Glucose Level 100 Hematocrit 46.7 Hemoglobin 14.3 Indirect Bilirubin 0.3 Lymphocytes # 3.5 H Lymphocytes % 28.2 Magnesium Level 2.3 Mean Corpuscular Hemoglobin 24.5 L Mean Corpuscular Hemoglobin Concent 30.6 L Mean Corpuscular Volume 80.0 L Mean Platelet Volume 8.7 Monocytes # 0.8 Monocytes % 6.3 Neutrophils # 7.9 H Neutrophils % 63.9 Nucleated Red Blood Cells # 0.0 Nucleated Red Blood Cells % 0.0 Phosphorus Level 4.0 Platelet Count 345 Potassium Level 4.7 Red Blood Count 5.84 Red Cell Distribution Width 14.9 H Sodium Level 142 Total Bilirubin 0.3 Total Protein 7.4 # White Blood Count 12.4 #H Bedside Glucose 100 108 142 Test 01/27/17 15:07 01/27/17 15:15 Arterial Blood HCO3 25.4 Arterial Blood Base Excess 0.7 Arterial Blood Oxygen Saturation 98.2 H Maulik Test ACCEPTAB Arterial Blood Gas Puncture Site Right Radial Arterial Blood Carboxyhemoglobin 0.3 Arterial Blood Date Drawn 01/27/2017 3:15:47 PM Arterial Blood Methemoglobin 0.1 Arterial Blood pCO2 (Temp correct) 41.1 Arterial Blood pH (Temp corrected) 7.409 Arterial Blood pO2 (Temp corrected) 124.0 H Blood Gas A-a O2 Differential 63.3 H Blood Gas Modality NASAL CANNULA Blood Gas Notified Time 01/27/2017 3:26:28 PM Blood Gas Notified Whom JLD Blood Gas Specimen Source Blood arterial Blood Gas Temperature 37.0 FiO2 33.0 Oxyhemoglobin Percent 97.8 Total Hemoglobin 14.7 Basophils # 0.0 Basophils % 0.3 Eosinophils # 0.1 Eosinophils % 0.8 Hematocrit 43.4 Hemoglobin 14.0 Lymphocytes # 3.2 H Lymphocytes % 32.2 Magnesium Level 2.0 Mean Corpuscular Hemoglobin 24.9 L Mean Corpuscular Hemoglobin Concent 32.3 Mean Corpuscular Volume 77.2 L Mean Platelet Volume 8.3 Monocytes # 0.5 Monocytes % 5.0 Neutrophils # 6.2 Neutrophils % 61.4 Nucleated Red Blood Cells # 0.0 Nucleated Red Blood Cells % 0.0 Platelet Count 309 Red Blood Count 5.62 Red Cell Distribution Width 14.4 Troponin I < 0.012 White Blood Count 10.0 Medications Medications Current Medications Aspirin (Halfprin) 81 mg DAILY PO Last administered on 01/27/17 09:30; Admin Dose 81 MG; Start 01/26/17 at 09:00 Insulin Glargine (Lantus) 22 unit QHS SC Last administered on 01/26/17 21:47; Admin Dose 22 UNIT; Start 01/25/17 at 21:00 Metoprolol Tartrate (Lopressor) 12.5 mg BID PO Last administered on 01/27/17 09:29; Admin Dose 12.5 MG; Start 01/25/17 at 21:00 Miscellaneous Information 1 ea NOTE XX ; Start 01/25/17 at 18:00 Glucose (Glutose) 15 gm Q15M PRN PO DECREASED GLUCOSE; Start 01/25/17 at 18:00 Glucose (Glutose) 22.5 gm Q15M PRN PO DECREASED GLUCOSE; Start 01/25/17 at 18: 00 Dextrose (D50w Syringe) 25 ml Q15M PRN IV DECREASED GLUCOSE; Start 01/25/17 at 18:00 Dextrose (D50w Syringe) 50 ml Q15M PRN IV DECREASED GLUCOSE; Start 01/25/17 at 18:00 Glucagon (Glucagen) 1 mg Q15M PRN IM DECREASED GLUCOSE; Start 01/25/17 at 18:00 Glucose (Glutose) 15 gm Q15M PRN BUCCAL DECREASED GLUCOSE; Start 01/25/17 at 18 :00 LORY YEUNG MD Jan 27, 2017 16:24
[2017-01-27 16:57] LABS: POTASSIUM 4.1 mmol/L (3.5-5.1)
[2017-01-27 17:00] LABS: CREATININE 0.75 mg/dl (0.61-1.24)
[2017-01-27 17:01] LABS: CALCIUM 8.7 mg/dl (8.4-10.2)
[2017-01-27 21:01] VITALS: BP 100/49; RESP 17
[2017-01-27] MEDS: INSULIN GLARGINE [LANtus] 3 ML PEN SC SCH (21:21)
[2017-01-28 05:40] LABS: ADD SCAN DIFF NO
[2017-01-28 05:46] LABS: BASOPHILS % 0.2 % (0.0-2.0); EOSINOPHILS # 0.1 10^3/ul (0.0-0.5); EOSINOPHILS % 1.4 % (0.0-7.0); HEMOGLOBIN 14.1 g/dl (14.0-18.0); LYMPHOCYTES % 29.6 % (15.0-51.0); MEAN CORPUSCULAR HEMOGLOBIN 24.4 pg (29.0-33.0); MEAN CORPUSCULAR HGB CONC 31.3 g/dl (32.0-37.0); MEAN CORPUSCULAR VOLUME 77.9 fl (82.0-101.0); MEAN PLATELET VOLUME 8.6 fl (7.4-10.4); MONOCYTE # 0.7 10^3/ul (0.3-0.9); MONOCYTES % 6.5 % (0.0-11.0); NEUTROPHIL # 6.4 10^3/ul (1.6-7.5); NEUTROPHILS % 62.1 % (39.0-77.0); PLATELET COUNT 332 10^3/UL (140-415); RED BLOOD COUNT 5.78 10^6/ul (4.70-6.10); RED CELL DISTRIBUTION WIDTH 14.5 % (11.5-14.5); WHITE BLOOD COUNT 10.3 10^3/ul (4.8-10.8)
[2017-01-28 06:33] LABS: ALBUMIN 3.4 g/dl (3.3-4.9); CHLORIDE 103 mmol/L (97-110); SODIUM 140 mmol/L (135-144)
[2017-01-28 06:34] LABS: POTASSIUM 4.4 mmol/L (3.5-5.1)
[2017-01-28 06:35] LABS: TROPONIN-I < 0.012 ng/ml (0.00-0.12)
[2017-01-28 06:36] LABS: ALANINE AMINOTRANSFERASE 24 IU/L (13-69); ALBUMIN/GLOBULIN RATIO 1.09; ALKALINE PHOSPHATASE 75 IU/L (42-121); ANION GAP 15 (8-16); ASPARTATE AMINO TRANSFERASE 21 IU/L (15-46); BILIRUBIN,INDIRECT 0.4 mg/dl (0-1.1); BILIRUBIN,TOTAL 0.4 mg/dl (0.2-1.3); BLOOD UREA NITROGEN 16 mg/dl (7-20); CALCIUM 8.5 mg/dl (8.4-10.2); CARBON DIOXIDE 26 mmol/L (21-31); CREATININE 0.72 mg/dl (0.61-1.24); GLUCOSE 105 mg/dl (70-220); PHOSPHORUS 4.2 mg/dl (2.5-4.9); TOTAL PROTEIN 6.5 g/dl (6.1-8.1)
[2017-01-28 06:37] LABS: MAGNESIUM 2.1 mg/dl (1.7-2.5)
[2017-01-28 07:33] VITALS: BP 108/77; RESP 18
[2017-01-28] MEDS: INSULIN ASPART [NOVOLOG] 3 ML PEN SC SCH ×3 (08:00→18:05)
--- NOTE | 2017-01-28 08:21 | RADRPT ---
Vent Rate: 85 bpm RR Interval: 0 msec DC Interval: 160 msec QRS Duration: 90 msec QT Interval: 360 msec QTC Interval: 428 msec P-R-T [place]: 58 - 8 - 90 degrees Normal sinus rhythm Normal ECG Electronically Signed By: Joel Clemente [id number]
--- NOTE | 2017-01-28 08:21 | RADRPT ---
Vent Rate: 63 bpm RR Interval: 0 msec OR Interval: 164 msec QRS Duration: 92 msec QT Interval: 396 msec QTC Interval: 405 msec P-R-T [place]: 31 - 1 - 91 degrees Normal sinus rhythm Nonspecific T wave abnormality Abnormal ECG Electronically Signed By: Joel Clemente [id number]
[2017-01-28] MEDS: ASPIRIN (EC) 81 MG TAB PO SCH (08:42)
[2017-01-28] MEDS: METOPROLOL 25 MG TAB PO SCH (08:43)
--- NOTE | 2017-01-28 12:18 | PSY ---
Date/Time of Note Date/Time of Note DATE: 01/28/17 TIME: 11:51 Psychiatric Subjective Eval Consent Pt consented to telemedicine: Yes Subjective Evaluation Patient location: inpatient Chief Complaint: bib als cc cp, 3 nitros and 162 asa in field Reason for consult: Auditory hallucinations, panic attack, bizarre behavior. History of present illness This is a 41 year old male who has been treated for mild obesity, Type II Diabetes, hypertension, who has presented to the ED on several occasions with complaints of chest pain. He was admitted December but left against medical advice. He presented to the ED on January 25 with complaints of chest pain and anxiety. He experienced the chest pain while driving. He pulled to the side of the road and called paramedics, who brought him to the ED. He described the chest pain as substernal and radiated down his left arm. He said that the pain was 10/10 and pressure like. The pain was relieved with aspirin and Nitro. During the hospital course, his behavior at times was unpredictable. He was emotionally labile, and on one occasion started complaining of auditory hallucinations and was hitting himself. He did not respond to verbal problems and a "code larkin" was called. Because of his complains of hallucinations and unpredictable behavior, a psychiatric consult was requested. He was cooperative in the interview. He denied any prior history of psychiatric symptoms, until about 3 weeks ago when he would experience symptoms of agitation and marked anger associated with auditory hallucinations of a command nature. He noted these symptoms only after smoking methamphetamine. He states that he has been using methamphetamine intermittently for over 10 year. He denied any history of mood swings, panic attacks, sleep disturbance, hallucinations or delusions when he was not under the influence of methamphetamine. He denied any suicidal or homicidal ideation. He states that he has been smoking methamphetamine for over 10 years with childhood friends. He states that he smokes intermittently. He does report having difficulty curbing his use, being able to abstain, and at times has craving to use. Past psychiatric history He denied any prior psychiatric treatment. Family History He is not aware of any family history of psychiatric disturbances. His brother has a history of methamphetamine dependence. He is currently incarcerated. The incarceration is related to his drug use. Social History: He is currently living with his parents. He has two daughters ages 17 and 18. He is caring for the 17 year old. The mother was not involved when the patient was 3. 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 Psychiatric Objective Eval Review of Systems: Constitutional: Normal Eyes: Normal ENT: Normal Neck: Normal Respiratory: Normal Chest/Breast: Normal Cardiovascular: Normal GI: Normal Genitourinary: Normal Skin: Normal Lymphatic: Normal Musculoskeletal: Normal Neurological: Normal Mental Status Examination: Appearance: Groomed Eye Contact: Good Psychomotor Activity: Normal Behavior: Friendly, Cooperative Speech: Clear AFFECT: Appropriate Mood: Appropriate/Full Though Process: Linear Thought Content: Normal Suicidal: No Homicidal: No On 72 hour hold: No Orientation: x4 Cognition: Alert Insight: Intact Judgement: Intact Attention Span: Intact Laboratory Results Laboratory Tests Test 01/26/17 11:55 01/26/17 17:39 01/26/17 20:22 01/27/17 03:07 Troponin I < 0.012ng/ml Bedside Glucose 118mg/dL 222mg/dL 101mg/dL Test 01/27/17 07:10 01/27/17 07:18 01/27/17 08:04 01/27/17 12:11 Lipase 204U/L White Blood Count 12.410^3/ul Red Blood Count 5.8410^6/ul Hemoglobin 14.3g/dl Hematocrit 46.7% Mean Corpuscular Volume 80.0fl Mean Corpuscular Hemoglobin 24.5pg Mean Corpuscular Hemoglobin Concent 30.6g/dl Red Cell Distribution Width 14.9% Platelet Count 91472^3/UL Mean Platelet Volume 8.7fl Neutrophils % 63.9% Lymphocytes % 28.2% Monocytes % 6.3% Eosinophils % 1.0% Basophils % 0.3% Nucleated Red Blood Cells % 0.0/100WBC Neutrophils # 7.910^3/ul Lymphocytes # 3.510^3/ul Monocytes # 0.810^3/ul Eosinophils # 0.110^3/ul Basophils # 0.010^3/ul Nucleated Red Blood Cells # 0.010^3/ul Sodium Level 142mmol/L Potassium Level 4.7mmol/L Chloride Level 101mmol/L Carbon Dioxide Level 29mmol/L Anion Gap 17 Blood Urea Nitrogen 20mg/dl Creatinine 0.82mg/dl Glucose Level 100mg/dl Calcium Level 8.4mg/dl Phosphorus Level 4.0mg/dl Magnesium Level 2.3mg/dl Total Bilirubin 0.3mg/dl Direct Bilirubin 0.00mg/dl Indirect Bilirubin 0.3mg/dl Aspartate Amino Transf (AST/SGOT) 29IU/L Alanine Aminotransferase (ALT/SGPT) 29IU/L Alkaline Phosphatase 83IU/L Total Protein 7.4g/dl Albumin 3.8g/dl Globulin 3.60g/dl Albumin/Globulin Ratio 1.05 Bedside Glucose 100mg/dL 108mg/dL Test 01/27/17 14:58 01/27/17 15:07 01/27/17 15:15 01/27/17 17:33 Bedside Glucose 142mg/dL 190mg/dL Blood Gas Specimen Source Blood arterial Arterial Blood Date Drawn 01/27/2017 3:15:47 PM Arterial Blood pH (Temp corrected) 7.409 Arterial Blood pCO2 (Temp correct) 41.1mmhg Arterial Blood pO2 (Temp corrected) 124.0mmHG Arterial Blood HCO3 25.4mmol/L Arterial Blood Base Excess 0.7mmol/L Arterial Blood Oxygen Saturation 98.2mmHG Maulik Test ACCEPTAB Arterial Blood Gas Puncture Site Right Radial Arterial Blood Carboxyhemoglobin 0.3% Arterial Blood Methemoglobin 0.1% Blood Gas A-a O2 Differential 63.3mmHg Oxyhemoglobin Percent 97.8% Total Hemoglobin 14.7g/dl Blood Gas Temperature 37.0C Blood Gas Modality NASAL CANNULA FiO2 33.0% Blood Gas Notified Whom JLD Blood Gas Notified Time 01/27/2017 3:26:28 PM White Blood Count 10.010^3/ul Red Blood Count 5.6210^6/ul Hemoglobin 14.0g/dl Hematocrit 43.4% Mean Corpuscular Volume 77.2fl Mean Corpuscular Hemoglobin 24.9pg Mean Corpuscular Hemoglobin Concent 32.3g/dl Red Cell Distribution Width 14.4% Platelet Count 11374^3/UL Mean Platelet Volume 8.3fl Neutrophils % 61.4% Lymphocytes % 32.2% Monocytes % 5.0% Eosinophils % 0.8% Basophils % 0.3% Nucleated Red Blood Cells % 0.0/100WBC Neutrophils # 6.210^3/ul Lymphocytes # 3.210^3/ul Monocytes # 0.510^3/ul Eosinophils # 0.110^3/ul Basophils # 0.010^3/ul Nucleated Red Blood Cells # 0.010^3/ul Sodium Level 141mmol/L Potassium Level 4.1mmol/L Chloride Level 104mmol/L Carbon Dioxide Level 24mmol/L Anion Gap 17 Blood Urea Nitrogen 19mg/dl Creatinine 0.75mg/dl Glucose Level 169mg/dl Calcium Level 8.7mg/dl Magnesium Level 2.0mg/dl Troponin I < 0.012ng/ml Test 01/27/17 20:35 01/28/17 04:15 01/28/17 07:50 Bedside Glucose 140mg/dL 110mg/dL White Blood Count 10.310^3/ul Red Blood Count 5.7810^6/ul Hemoglobin 14.1g/dl Hematocrit 45.0% Mean Corpuscular Volume 77.9fl Mean Corpuscular Hemoglobin 24.4pg Mean Corpuscular Hemoglobin Concent 31.3g/dl Red Cell Distribution Width 14.5% Platelet Count 08816^3/UL Mean Platelet Volume 8.6fl Neutrophils % 62.1% Lymphocytes % 29.6% Monocytes % 6.5% Eosinophils % 1.4% Basophils % 0.2% Nucleated Red Blood Cells % 0.0/100WBC Neutrophils # 6.410^3/ul Lymphocytes # 3.010^3/ul Monocytes # 0.710^3/ul Eosinophils # 0.110^3/ul Basophils # 0.010^3/ul Nucleated Red Blood Cells # 0.010^3/ul Sodium Level 140mmol/L Potassium Level 4.4mmol/L Chloride Level 103mmol/L Carbon Dioxide Level 26mmol/L Anion Gap 15 Blood Urea Nitrogen 16mg/dl Creatinine 0.72mg/dl Glucose Level 105mg/dl Calcium Level 8.5mg/dl Phosphorus Level 4.2mg/dl Magnesium Level 2.1mg/dl Total Bilirubin 0.4mg/dl Direct Bilirubin 0.00mg/dl Indirect Bilirubin 0.4mg/dl Aspartate Amino Transf (AST/SGOT) 21IU/L Alanine Aminotransferase (ALT/SGPT) 24IU/L Alkaline Phosphatase 75IU/L Troponin I < 0.012ng/ml Total Protein 6.5g/dl Albumin 3.4g/dl Globulin 3.10g/dl Albumin/Globulin Ratio 1.09 Lipase 194U/L Assessment and Plan Assessment/Diagnosis Olpe I: 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 Recommendation/Plan Medication Management Suggest that the patient be discharged with a prescription of Risperdal 1mg po every 4 hours prn auditory hallucinations, not to exceed 3mg in 24 hours. #30 Psychotherapy The patient should be referred to substance abuse treatment programs. Pt. Caregiver/Family Education Referral to CATHLEEN MENJIVAR MD Jan 28, 2017 12:03
--- NOTE | 2017-01-28 15:41 | RADRPT ---
PROCEDURE: Ventilation-perfusion lung scan CLINICAL INDICATION: 41 -year-old patient with shortness of breath. TECHNIQUE: Following the inhalation of approximately 1.0 mCi of Tc-99m stannous DTPA aerosol, vent ilation images were obtained. The patient was then given an intravenous injection of 6.0 mCi of Tc- 99m MAA, in perfusion images were obtained. COMPARISON: No prior VQ scans. Correlation was made with chest x-ray dated January 27, 2017. FINDINGS: Ventilation images demonstrate slightly nonhomogeneous distribution of activity in the lungs bilater ally. Perfusion images reveal matched nonhomogeneous distribution of activity in both lungs. The findings represent very low probability for pulmonary embolus. IMPRESSION: Very low probability for pulmonary embolus. RPTAT: HH .Amy Sequeira MD, MD Date Time Electronically viewed and signed by .Amy Sequeira MD, on 01/28/2017 15:40 .L/
--- NOTE | 2017-01-28 17:49 | PDOCDIS ---
Discharge Instructions DIAGNOSIS Discharge Diagnosis: chest pain CONDITION Patient Condition: Good HOME CARE INSTRUCTIONS: Special Diet: 2000 KYRIE ada ACTIVITY: Activity Restrictions: Slowly Increase Activity Do not Drive FOLLOW UP/APPOINTMENTS Appointments appt primary doc -1week. substance assistance center appt, as instructed. LORY YEUNG MD Jan 28, 2017 17:49
[2017-01-28] MEDS ORDERED: RIS1 PO (17:50)
[2017-01-28] MEDS ORDERED: ASPI-664 PO (17:59)
[2017-01-28] MEDS ORDERED: LANT3I SC (17:59)
[2017-01-28] MEDS ORDERED: RISPERIDONE 1 MG TAB PO PRN (18:00)
--- NOTE | 2017-01-28 18:32 | DS ---
DATE OF ADMISSION: 01/25/2017 DATE OF DISCHARGE: 01/27/2017 PRIMARY CARE PHYSICIAN: Unknown. FREIGHT CAR LOADER: Tele ede, Dr. Liasndro Dao. DIAGNOSIS ON ADMISSION: Atypical chest pain. DIAGNOSES ON DISCHARGE: 1. Atypical chest pain. 2. Substance, methamphetamine use. 3. Acute agitation, hallucinations, and psychosis. HOSPITAL COURSE: A 41-year-old gentleman admitted with chest pain, ruled out for acute coronary syn drome by enzymes, EKG symptoms. Troponins negative. Refused stress test on his last admission. Hi s symptoms were highly atypical. We did a VQ scan which was unremarkable. The patient's cardiac ri sk factors include hypertension, diabetes and obesity. The patient has been optimized medically and stable and fit for discharge on aspirin. Of note, twice during the hospital stay, the patient has had 2 episodes of acute agitation. Patient was seen by tele psych in consultation. It is noted that the patient is using methamphetamines for 10 years, but however, lately has had symptoms probably related to methamphetamine. He was given tabitha martinez options regarding substance abuse ____. He is presently stable and fit for discharge. Th ere is no depression or ideation. His home support is stable. From psychology standpoint, patient may take Risperdal up to 3 mg daily for issues with auditory hallucinations. DISCHARGE PLAN: Home. Follow up with primary in 1 week. Behavioral health as needed, the patient seek assistance from various substance abuse counseling centers. DIET: 1800 ADA. ACTIVITY: As tolerated. No driving. DURABLE MEDICAL EQUIPMENT: None. CODE STATUS: FULL. CONDITION: Stable. ALTERED MEDICATIONS: None. BARRIERS TO DISCHARGE: None. PENDING TESTS: None. FUNCTIONAL STATUS: Patient awake, alert, given plan of care and options. REASON FOR ADMISSION: Chest pain. LABORATORY DATA: EKG: Sinus rhythm, no acute process. Chest x-ray: No acute process x2. VQ scan: Low probability of PE. CMP unremarkable. Troponins negative x5. Lipase of 190. A1c of 6.7 at goal. TSH of 0.95. Trigly cerides 176, total 144, HDL of 45, LDL 64. INR 0.9. Tox screen positive for amphetamine. White ce ll count of 10, hemoglobin and hematocrit of 14 and 45, MCV is low at 37, platelets of 332. DISCHARGE MEDICATIONS: CONTINUED MEDICATIONS: 1. Aspirin 81 daily. 2. Lantus 22 daily. 3. Probably could recommend some ____. ALTERED MEDICATIONS: None. NEW MEDICATIONS: Risperdal 1 mg every 6 hours as needed for auditory hallucinations, not to exceed 3 tablets in 1 day. Dictated By: LORY YEUNG MD AC/NTS Conf#: [id number] DID#: [id number] CC: ROWENA ALVARENGA MD; LISANDRO DAO MD;*[facility]*
== END 2017-01-28 18:38 | disposition home or self-care (01) | DRG 313 ==
LOC: E/R 12:57 → TEL 16:07 → E/R 18:35 → PP2 01-27 04:30
PROVIDERS: ADMIT Family Medicine; ATTEND Family Medicine
PROC: 4A033R1 Measurement of Arterial Saturation, Peripheral, Percutaneous Approach (ICD-10-PCS; principal; 2017-01-27)
PROC: 3E0234Z Introduction of Serum, Toxoid and Vaccine into Muscle, Percutaneous Approach (ICD-10-PCS; 2017-01-27)
DX: R07.89 Other chest pain (principal); E88.81 Metabolic syndrome and other insulin resistance; Z68.42 Body mass index [BMI] 45.0-49.9, adult; E11.9 Type 2 diabetes mellitus without complications; D72.829 Elevated white blood cell count, unspecified; I10 Essential (primary) hypertension; F15.259 Other stimulant dependence with stimulant-induced psychotic disorder, unspecified; R44.3 Hallucinations, unspecified; E78.5 Hyperlipidemia, unspecified; F41.9 Anxiety disorder, unspecified; E66.01 Morbid (severe) obesity due to excess calories; Z79.4 Long term (current) use of insulin; Z79.82 Long term (current) use of aspirin; Z86.73 Personal history of transient ischemic attack (TIA), and cerebral infarction without residual deficits; Z23 Encounter for immunization
CPT/HCPCS: 36415; 36600; 71010; 78582; 80048; 80053; 80061; 80076; 80307; 81003; 82803; 82962; 83036; 83690; 83735; 84100; 84443; 84484; 85025; 85378; 85610; 85730; 90686; 93005; A9540; J1815; J2060

== ENCOUNTER 2017-01-29 08:36 | Emergency (ER) | payer OTHER ==
[~2017-01-29] VITALS: Ht 172.7 cm; Wt 110.2 kg
[~2017-01-29 08:36] MED LIST changes: +ASPI-664 PO; -NAPR-688 PO; +RIS1 PO
[2017-01-29 08:38] VITALS: Ht 172.7 cm; Wt 110.2 kg
[2017-01-29 09:48] LABS: ADD SCAN DIFF NO
[2017-01-29 09:52] LABS: BASOPHILS % 0.3 % (0.0-2.0); EOSINOPHILS # 0.1 10^3/ul (0.0-0.5); HEMATOCRIT 48.4 % (42.0-52.0); HEMOGLOBIN 15.1 g/dl (14.0-18.0); LYMPHOCYTES # 2.8 10^3/ul (0.8-2.9); LYMPHOCYTES % 27.1 % (15.0-51.0); MEAN CORPUSCULAR HEMOGLOBIN 24.3 pg (29.0-33.0); MEAN CORPUSCULAR HGB CONC 31.2 g/dl (32.0-37.0); MEAN CORPUSCULAR VOLUME 77.8 fl (82.0-101.0); MEAN PLATELET VOLUME 8.6 fl (7.4-10.4); MONOCYTE # 0.5 10^3/ul (0.3-0.9); MONOCYTES % 4.8 % (0.0-11.0); NEUTROPHIL # 6.9 10^3/ul (1.6-7.5); NEUTROPHILS % 66.5 % (39.0-77.0); PLATELET COUNT 326 10^3/UL (140-415); RED BLOOD COUNT 6.22 10^6/ul (4.70-6.10); WHITE BLOOD COUNT 10.4 10^3/ul (4.8-10.8)
--- NOTE | 2017-01-29 09:55 | ERD ---
ER Documentation Chief Complaint Date/Time DATE: 01/29/17 TIME: 09:52 Chief Complaint BIBA FOR DIZZINESS STARTED THIS AM HPI 41-year-old male history of borderline diabetes, hypertension, obesity, methamphetamine abuse was brought in by rescue this morning for onset of dizziness chest pain as well as left knee pain that started at 7 AM today. He was recently admitted and discharged, they ruled out acute coronary syndrome with serial troponins. VQ scan was done that showed low probability of pulmonary embolus. Patient describes his pain as being an achy sensation in the center of his chest, he states that when he presses on it he can reproduce it himself. He also states that when he is going from laying down to sitting position standing he feels dizzy, it is a lightheaded sensation. He reports a gradual onset headache, diffuse, throbbing. She denies any blurred vision, nausea, vomiting, shortness of breath, palpitations associated. He also complains of diffuse left-sided anterior knee pain is atraumatic, worse with weightbearing, better with flexion and rest. No associated fevers or chills with these symptoms. Despite a recent previous drug screen for methamphetamine , patient states that he has not used in several years. ROS All systems reviewed and are negative except as per history of present illness. Medications Home Meds Active Scripts Insulin Glargine* (Lantus*) 100 Unit/Ml Soln, 22 UNIT SC QHS for 7 Days, #10 3 Refills Prov:LORY YEUNG MD 01/28/17 Aspirin* (Aspirin* EC) 81 Mg Tablet., 81 MG PO DAILY for 30 Days, #30 Prov:LORY YEUNG MD 01/28/17 Risperidone* (Risperdal*) 1 Mg Tablet, 1 MG PO Q6 Y for AGITATION for 30 Days, # 30 TAB Prov:LORY YEUNG MD 01/28/17 Discontinued Reported Medications Aspirin* (Aspirin* EC) 81 Mg Tablet., 81 MG PO DAILY, TAB 01/25/17 Insulin Glargine* (Lantus*) 100 Unit/Ml Soln, 22 UNIT SC QHS, #10 12/15/15 Discontinued Scripts Naproxen* (Naproxen*) 500 Mg Tablet, 500 MG PO BID, #20 TAB Prov:LIT REYES DO 05/02/16 Allergies Allergies: Coded Allergies: No Known Allergies (Verified Allergy, Unknown, 01/26/17) PMhx/Soc History of Surgery: No Anesthesia Reaction: No Hx Neurological Disorder: No Hx Respiratory Disorders: No Hx Cardiac Disorders: Yes (HTN, s/p angiogram) Hx Psychiatric Problems: Yes (anxiety) Hx Miscellaneous Medical Probl: Yes (Obesity) Hx Alcohol Use: No Hx Substance Use: No Hx Tobacco Use: Yes (marijuana) Smoking Status: Current every day smoker Physical Exam Vitals Vital Signs Date Time Temp Pulse Resp B/P Pulse Ox O2 Delivery O2 Flow Rate FiO2 01/29/17 08:38 98.7 78 18 123/77 98 Physical Exam General: Well-developed, well-nourished. The patient appears in no acute distress. HEENT: Head is normocephalic, atraumatic. No scleral icterus. Pupils are equal , round, and reactive. Oral mucous membranes are moist. No pharyngeal erythema. Neck: Supple. Nontender. Lungs: Clear to auscultation. Normal air movement. Heart: Regular rate and rhythm. S1 and S2 are normal. No murmurs, gallops, or rubs. Reproducible chest wall tenderness with palpation in the center. Abdomen: Soft, nontender, nondistended. Bowel sounds are normoactive. Extremities: No clubbing or cyanosis. Normal pulses. Moving extremities x 4. No weakness. Neurologic: Alert and oriented 3. No focal deficits. Cranial nerves II 12 grossly intact. Finger to nose intact. No cerebellar signs, no nystagmus. Strength to upper and lower extremities 5 out of 5 bilaterally. Gait is normal. Skin: Normal turgor. No rash or lesions. Result Diagram: 01/29/1739 01/29/1739 Results 24 hrs Laboratory Tests Test 01/29/17 09:39 White Blood Count 10.410^3/ul Red Blood Count 6.2210^6/ul Hemoglobin 15.1g/dl Hematocrit 48.4% Mean Corpuscular Volume 77.8fl Mean Corpuscular Hemoglobin 24.3pg Mean Corpuscular Hemoglobin Concent 31.2g/dl Red Cell Distribution Width 15.0% Platelet Count 88024^3/UL Mean Platelet Volume 8.6fl Neutrophils % 66.5% Lymphocytes % 27.1% Monocytes % 4.8% Eosinophils % 1.0% Basophils % 0.3% Nucleated Red Blood Cells % 0.0/100WBC Neutrophils # 6.910^3/ul Lymphocytes # 2.810^3/ul Monocytes # 0.510^3/ul Eosinophils # 0.110^3/ul Basophils # 0.010^3/ul Nucleated Red Blood Cells # 0.010^3/ul Sodium Level 141mmol/L Potassium Level 4.8mmol/L Chloride Level 102mmol/L Carbon Dioxide Level 27mmol/L Anion Gap 17 Blood Urea Nitrogen 15mg/dl Creatinine 0.80mg/dl Glucose Level 133mg/dl Calcium Level 8.9mg/dl Troponin I 0.014ng/ml 12-lead EKG(interpreted by supervising physician): Dr Bruno Rate/Rhythm: Normal Sinus Rhythm, rate of 79 QRS, ST, T-waves: No changes consistent w/ acute ischemia, no intervals, no dysrhythmias, no ectopy Impression: No evidence of ischemia or arrhythmia PROCEDURE: CT Brain without contrast. CLINICAL INDICATION: Headaches and dizziness TECHNIQUE: A CT of the brain was performed on a multidetector CT scanner utilizing axial sections from the skull base through the vertex without contrast. Images were reviewed on a high-resolution PACS workstation. Exam CTDI = 44.19 mGy and the DLP = 720.23 mGy-cm. One or more of the following dose reduction techniques were used: Automated exposure control Adjustment of the mA and/or kV according to patient size. Use of iterative reconstruction technique. COMPARISON: MRI brain 12/15/2015 FINDINGS: There is no evidence of intracranial hemorrhage, mass effect or midline shift. No abnormal intra-axial or extra-axial fluid collections are seen. The density of the brain is normal and the spaulding/white matter differentiation is well preserved. The osseous structures are unremarkable. Paranasal sinuses are clear. IMPRESSION: 1. No intracranial hemorrhage, mass effect or midline shift. RPTAT: BB .Ilir Colon MD, Date Time Electronically viewed and signed by .Ilir Colon MD, on 01/29/2017 10:08 .O/ PROCEDURE: XR Chest AP portable CLINICAL INDICATION: Chest pain TECHNIQUE: An AP portable radiograph of the chest was submitted. COMPARISON: 01/27/2017 FINDINGS: Support Hardware: None Cardiovascular: The cardiovascular silhouette appears unremarkable. Lung Vaca: The lung vaca appear clear with no nodule, alveolar infiltrate, or interstitial prominence evident. Pleural Spaces: No pneumothorax or pleural effusion is identified. Osseous Structures: The osseous structures appear intact. Soft Tissues: The soft tissues appear generous. IMPRESSION: Stable and unremarkable portable chest. Physician Claudine Date Time Electronically viewed and signed by Physician Claudine on 01/29/2017 10:13 Procedures/MDM ER course: I reviewed patient's past medical records, he was admitted, d-dimer was negative , VQ scan shows low probability of a pulmonary embolus. Troponins were done serially and acute coronary syndrome was ruled out. Patient had positive amphetamines and drug screen. MDM: 41-year-old male complains of chest pain, headache, dizziness and left- sided knee pain that started this morning. Patient has had a significant workup over the last several days, including a VQ scan, serial troponins. His history includes methamphetamine abuse, borderline diabetes, hypertension and obesity. He does have a history of psychiatric illness likely associated with drug history. Patient examination shows reproducible chest tenderness, given the patient's age I spoke with my attending physician who stated that we will be able to discharge patient with one troponin, and his chest pain is unlikely acute coronary syndrome, pulmonary embolus, dissection or any acute cardiopulmonary process. Dizziness was reproducible with patient's change in position including from sitting to standing, as well as sitting to laying. It is likely positional benign vertigo, CT of head is unremarkable. History and physical examination is not concerning for TIA, CVA. The case was reviewed and discussed with who agrees with the plan of care including labs, treatment, and advanced imaging as appropriate. Departure Diagnosis: Primary Impression: Dizziness Additional Impression: Chest pain Condition: VIGNESH Olvera PA-C Jan 29, 2017 09:55
[2017-01-29 10:08] LABS: POTASSIUM 4.8 mmol/L (3.5-5.1)
--- NOTE | 2017-01-29 10:09 | RADRPT ---
PROCEDURE: CT Brain without contrast. CLINICAL INDICATION: Headaches and dizziness TECHNIQUE: A CT of the brain was performed on a multidetector CT scanner utilizing axial sections from the skull base through the vertex without contrast. Images were reviewed on a high-resolution Elliptic workstation. Exam CTDI = 44.19 mGy and the DLP = 720.23 mGy-cm. One or more of the following dose reduction techniques were used: Automated exposure control Adjustment of the mA and/or kV according to patient size. Use of iterative reconstruction technique. COMPARISON: MRI brain 12/15/2015 FINDINGS: There is no evidence of intracranial hemorrhage, mass effect or midline shift. No abnormal intra-ax ial or extra-axial fluid collections are seen. The density of the brain is normal and the spaulding/whit e matter differentiation is well preserved. The osseous structures are unremarkable. Paranasal si nuses are clear. IMPRESSION: 1. No intracranial hemorrhage, mass effect or midline shift. RPTAT: BB .Ilir Colon MD, MD Date Time Electronically viewed and signed by .Ilir Colon MD, on 01/29/2017 10:08 .O/
[2017-01-29 10:11] LABS: CREATININE 0.8 mg/dl (0.61-1.24)
[2017-01-29 10:12] LABS: CALCIUM 8.9 mg/dl (8.4-10.2)
--- NOTE | 2017-01-29 10:13 | RADRPT ---
PROCEDURE: XR Chest AP portable CLINICAL INDICATION: Chest pain TECHNIQUE: An AP portable radiograph of the chest was submitted. COMPARISON: 01/27/2017 FINDINGS: Support Hardware: None Cardiovascular: The cardiovascular silhouette appears unremarkable. Lung Velazquez: The lung velazquez appear clear with no nodule, alveolar infiltrate, or interstitial promi nence evident. Pleural Spaces: No pneumothorax or pleural effusion is identified. Osseous Structures: The osseous structures appear intact. Soft Tissues: The soft tissues appear generous. IMPRESSION: Stable and unremarkable portable chest. Physician Claudine Date Time Electronically viewed and signed by Gelacio Pope Physician on 01/29/2017 10:13 /
[2017-01-29 10:27] LABS: TROPONIN-I 0.014 ng/ml (0.00-0.12)
== END 2017-01-29 10:53 | disposition home or self-care (01) ==
LOC: FTE 08:36
DX: R42 Dizziness and giddiness (principal); R07.89 Other chest pain; I10 Essential (primary) hypertension; E66.9 Obesity, unspecified; F17.210 Nicotine dependence, cigarettes, uncomplicated; Z68.36 Body mass index [BMI] 36.0-36.9, adult; Z79.82 Long term (current) use of aspirin
CPT/HCPCS: 36415; 70450; 71010; 80048; 84484; 85025; 93005; Z7502

== ENCOUNTER 2017-02-03 15:36 | Outpatient (CLI) | payer OTHER ==
[~2017-02-03] VITALS: Ht 167.6 cm; Wt 126.4 kg
[2017-02-03 15:44] VITALS: BP 151/88; PULSE 86; RESP 18; Ht 167.6 cm; Wt 126.4 kg
--- NOTE | 2017-02-10 15:18 | PN ---
Date/Time of Note Date/Time of Note DATE: 02/10/17 TIME: 15:15 Outpatient Progress Note Chief Complaint Chest pain/diabetes/hypertension/hyperlipidemia HPI Chest pain/no chest pain at present, no PND orthopnea, ankle edema, Diabetes/no pleuritic supple due to hypoglycemia, gastroparesis, Hypertension/no headache or dizziness or lightheadedness, no local focal weakness, Hyperlipidemia/no xanthoma, no abdominal pain, Review of Systems Const: No Fever, no chills, no Wt. loss, no Fatigue, normal appetite, no diaphoresis. Eyes: No pain, no discharge, no redness, no visual change, no foreign body. ENT: No pain, no bleeding, no congestion, no sore throat, no dysphagia, no discharge or rhinitis. Lymph: No adenopathy, no tender nodes, no lymphedema. Resp: No SOB, no cough, no sputum, no wheezing, no chest pain. CV: No chest pain, no palpitaions, no CARTER, no PND, no edema. GI: Normal appetite, no pain, no nausea, no vomiting, no diarrhea, no blood, no constipation. : No frequency, no urgency, no dysuria, no hematuria, no flank pain, no discharge, no bleeding. Musc: No bone/joint pain, no back pain, no neck pain, no knee pain, no restricted ROM. Skin: No rash, no skin lesions, no erythema, no laceration, no bruising, no pruritus. Neuro: No COTO, no dizziness, no syncope, no seizure, no focal-weakness. Endo: No polyuria, no polydypsia, no dry-skin, no temp-intolerance. Psych: No hallucinations, no depression, no anxiety, no suicidal ideation. Ext: No edema, no pain, no ulcer, no weakness. Physical Exam General Appearance: A 41 year-old [ male who appears well-developed, well- nourished, in no acute distress. HEENT: Head normocephalic, atraumatic. Pupils equal, round, reactive to light and accommodate. Sclerae are no jaundice. Nasal turbinates pink without erythema or nasal discharge. Mucous membranes pink and moist without lesions. Oropharynx clear without any exudate or discharge. NECK: Supple. Trachea midline, No thyromegaly, No cervical lymphadenopathy, No mass, No carotid bruits, No JVD, Carotid pulses 2+ bilaterally. PULMONARY: Clear to auscultaion bilaterally, No retractions, Chest expansion symmetric bilaterally, no rales, no ronchi, no dulness on percussion. CARDIAC: Normal SI and S2, Regular rate and rythm, no murmur, gallop, or rub. GASTROINTESTINAL: Abdomen is soft, non-tender, Non Rigid, No distention, Positive bowel sounds x4 quadrants, Liver normal. SKIN: Warm, dry, no rash, no bruise, no echmosis. EXTREMITIES: Bilateral lower extremities normal, no edema, no phlabitus, pulse palpable, no contracture. MUSCULOSKELETAL: Spine Normal, Non-tender, Normal range of motion, No swelling, no deformity, no clubbing, or cyanosis, the patient has no edema to bilateral lower extremities, dorsalis pedis pulses palpable bilaterally. NEUROLOGIC: The patient is awake, alert, oriented, responding to yes/no questions appropriately, moving all extremities, cranial nerve intact, normal strenght, normal power, normal coordination, normal gait. Allergies Coded Allergies: No Known Allergies (Verified Allergy, Unknown, 01/26/17) PMH ASHD/diabetes/hypertension/hyperlipidemia Social Hx No smoking or drinking no drugs, Family Hx Noncontributory Patient History: Endocrine and metabolic disease 33 MOTHER (DM) Assessment/Plan Impression Chest pain/diabetes/hypertension/hyperlipidemia Plan Continue all medications supportive care, patient continued to be monitoring blood pressure and blood sugar, patient education done, Patient blood pressure slightly elevated, discussed with the patient, if it remain elevated we will have to adjust the medication, Patient does not have any chest pain, if any chest pain to call us or go to the ER or call primary care physician, Patient has all the medication at present Medications Home Meds Active Scripts Insulin Glargine* (Lantus*) 100 Unit/Ml Soln, 22 UNIT SC QHS for 7 Days, #10 3 Refills Prov:LORY YEUNG MD 01/28/17 Aspirin* (Aspirin* EC) 81 Mg Tablet.dr, 81 MG PO DAILY for 30 Days, #30 Prov:LORY YEUNG MD 01/28/17 Risperidone* (Risperdal*) 1 Mg Tablet, 1 MG PO Q6 Y for AGITATION for 30 Days, # 30 TAB Prov:LORY YEUNG MD 01/28/17 OBI SHAH MD Feb 10, 2017 15:18
== END 2017-02-03 16:34 | disposition home or self-care (01) ==
LOC: DCC 15:36
PROVIDERS: ATTEND Internal Medicine
DX: R07.9 Chest pain, unspecified (principal); E11.9 Type 2 diabetes mellitus without complications; I10 Essential (primary) hypertension; E78.5 Hyperlipidemia, unspecified

== ENCOUNTER 2017-04-15 16:50 | Emergency (ER) | payer OTHER ==
[~2017-04-15] VITALS: Ht 162.6 cm; Wt 136.0 kg
[2017-04-15 16:51] VITALS: Ht 162.6 cm; Wt 136.0 kg
[2017-04-15] MEDS ORDERED: ONDANSETRON (ODT) 4 MG TAB ODT STA (17:13)
[2017-04-15] MEDS ORDERED: KETOROLAC 30 MG INJ IM STA (17:13)
--- NOTE | 2017-04-15 17:22 | ERA ---
ER Documentation Chief Complaint Date/Time DATE: 04/15/17 TIME: 17:16 Chief Complaint villafuerte started last night HPI This is a 41-year-old male who is presenting with a chief complaint of headache. Patient states that the headache is bilateral, throbbing, and 7-8 out of 10 with onset about 18 hours ago. Patient was seen and worked up at [facility] 1 week ago with a headache he describes as more severe; states that the CT scan was negative. However patient does describe that the doctors took about 5-7 mL of fluid out of his spine. Patient denies changes in vision, worse headache of life, thunderclap headache, pain behind the eyes, loss of consciousness, altered mental status, change in behavior, change in hearing, photophobia, fever, or history of cancer. Patient states that he has diabetes with unknown type and probable heart problems but does not know any of the diagnoses at this time. Patient does not regularly see a PCP. ROS All systems reviewed and are negative except as per history of present illness. Medications Home Meds Active Scripts Acetaminophen* (Tylophen*) 500 Mg Capsule, 1 CAP PO Q6H Y for PAIN AND OR ELEVATED TEMP, #20 CAP Prov:ZOEY YAN PA-C 04/15/17 Insulin Glargine* (Lantus*) 100 Unit/Ml Soln, 22 UNIT SC QHS for 7 Days, #10 3 Refills Prov:LORY YEUNG MD 01/28/17 Aspirin* (Aspirin* EC) 81 Mg Tablet.dr, 81 MG PO DAILY for 30 Days, #30 Prov:LORY YEUNG MD 01/28/17 Risperidone* (Risperdal*) 1 Mg Tablet, 1 MG PO Q6 Y for AGITATION for 30 Days, # 30 TAB Prov:LORY YEUNG MD 01/28/17 Allergies Allergies: Coded Allergies: No Known Allergies (Verified Allergy, Unknown, 01/26/17) PMhx/Soc History of Surgery: No Anesthesia Reaction: No Hx Neurological Disorder: No Hx Respiratory Disorders: No Hx Cardiac Disorders: Yes (HTN, s/p angiogram) Hx Psychiatric Problems: Yes (anxiety) Hx Miscellaneous Medical Probl: Yes (Obesity , DM ) Hx Alcohol Use: No Hx Substance Use: Yes (MARIJUANA ) Hx Tobacco Use: Yes Smoking Status: Current some day smoker Physical Exam Vitals Vital Signs Date Time Temp Pulse Resp B/P Pulse Ox O2 Delivery O2 Flow Rate FiO2 04/15/17 18:56 97.4 78 18 120/78 99 04/15/17 16:51 97.4 91 127/75 99 Physical Exam Const: Morbidly obese 41-year-old male Head: Atraumatic Eyes: Normal Conjunctiva. EOMI bilaterally. PERRLA. Ophthalmoscope exam showed cup-to-disc ratio within normal limits with gross measurements. Left eye exam had mild dilation of veins most consistent with early diabetic retinopathy. ENT: Normal External Ears, Nose and Mouth. Neck: Full range of motion..~ No meningismus. Resp: Clear to auscultation bilaterally Cardio: Regular rate and rhythm, no murmurs Abd: Soft, non tender, non distended. Normal bowel sounds Skin: No petechiae or rashes Back: No midline or flank tenderness Ext: No cyanosis, or edema Neur: Awake and alert Psych: Normal Mood and Affect Results 24 hrs Current Medications Medications (Trade) Dose Ordered Sig/Batsheva Route PRN Reason Start Time Stop Time Status Last Admin Dose Admin Acetaminophen/ Hydrocodone Bitart ([place] (5/325)) 1 tab ONCE ONCE PO 04/15/17 17:30 04/15/17 17:31 DC 04/15/17 17:31 Ketorolac Tromethamine (Toradol) 30 mg ONCE STAT IM 04/15/17 17:13 04/15/17 17:15 DC 04/15/17 17:32 Ondansetron HCl (Zofran Odt) 4 mg ONCE STAT ODT 04/15/17 17:13 04/15/17 17:16 DC 04/15/17 17:32 Procedures/MDM This is a 41-year-old male being worked up and evaluated for headache. Patient denies thunderclap or worst headache of life. Patient received a CT 1 week ago at [place] which was negative. Patient's symptoms are more mild compared to last week. Patient was given Zofran, Toradol, and [place] in the ED with moderate relief of symptoms. Plan of management will include NSAIDs and referral to neurologist. Patient was referred to neurologist last week but stated that he has not had time to go. I spoke with my attending Dr. Teehee who agrees with assessment and plan. Patient is stable and his current condition is appropriate for discharge. Patient be discharged at this time with discharge instructions return precautions. Departure Diagnosis: Primary Impression: Headache Qualified Code: R51 - Nonintractable headache, unspecified chronicity pattern , unspecified headache type Additional Instructions: Follow up with your PCP within the next 1-3 days for a more thorough evaluation and a possible referral to a specialist. Return the the emergency department immediately if symptoms worsen or change. If you have any questions regarding medications, ask your pharmacist or us before you leave. If any adverse reactions occur while taking your medications, discontinue the treatment and return to the emergency department immediately. Take your medications as directed, and complete the entire course of treatment. ZOEY YAN PA-C Apr 15, 2017 17:22
[2017-04-15] MEDS ORDERED: HYDROCODONE/APAP (5/325) TAB PO ONE (17:30)
[2017-04-15] MEDS ORDERED: ACET500C5 PO (18:47)
[2017-04-15 18:56] VITALS: BP 120/78; PULSE 78; RESP 18; TEMP 97.4
== END 2017-04-15 18:48 | disposition home or self-care (01) ==
LOC: FTE 16:50
DX: R51 Headache (principal); I10 Essential (primary) hypertension; E11.9 Type 2 diabetes mellitus without complications; E66.9 Obesity, unspecified; F17.210 Nicotine dependence, cigarettes, uncomplicated; Z68.43 Body mass index [BMI] 50.0-59.9, adult; Z79.4 Long term (current) use of insulin; Z79.82 Long term (current) use of aspirin
CPT/HCPCS: 96372; J1885; Z7502; Z7610

== ENCOUNTER 2017-04-22 20:00 | Emergency (ER) | payer OTHER ==
[~2017-04-22] VITALS: Ht 177.8 cm; Wt 125.0 kg
[~2017-04-22 20:00] MED LIST changes: +ACET500C5 PO
[2017-04-22 20:03] VITALS: Ht 177.8 cm; Wt 125.0 kg
[2017-04-22] MEDS ORDERED: ONDANSETRON 4 MG INJ IV STA (21:26)
[2017-04-22] MEDS ORDERED: FENTAnyl 50 MCG/ML VIAL IV ONE (21:30)
--- NOTE | 2017-04-22 23:12 | RADRPT ---
PROCEDURE: CT ABDOMEN/PELVIS WITHOUT CONTRAST CLINICAL INDICATION: 41-year-old male with abdominal pain and umbilical hernia. TECHNIQUE: The study was performed utilizing a GE [employer] Software VCT 64-slice CT scanner. Direct axia l sections were obtained through the abdomen and pelvis without the use of intravenous contrast mate rial. Sagittal and coronal reformations were obtained. One or more of the following dose reduction t echniques were utilized: automated exposure control, adjustment of the mA and/or kV according to pat ient's size or use of iterative reconstruction technique. The images were reviewed on a PACS workst atGravity. CTD/vol = 23.3 mGy; Total Exam DLP = 1510.5 mGy-cm. COMPARISON: None. FINDINGS: There is trace bibasilar subsegmental atelectasis. There is no evidence for significant pleural eff usion. The liver has a normal size and contour without focal areas of abnormal density. No intrahep atic nor extrahepatic biliary ductal dilatation is seen. The gallbladder demonstrates no wall thicke roxie nor pericholecystic fluid. No biliary stones are evident. The pancreas is without areas of abno rmal attenuation. The spleen is identified and has a normal size without abnormal density. The adre nal glands are unremarkable. The kidneys are without abnormal density. No hydroureteronephrosis nor nephroureterolithiasis is evident. The urinary bladder contains urine. There is a prominent umbilica l hernia with an opening of 2.7 x 2.5 cm containing omental fat. There is no evidence for bowel obs truction. The appendix is visualized and is without abnormal thickening or surrounding inflammatory reaction. There is no significant free fluid. The aortoiliac vessels are without aneurysmal dilatation. There is a L3 anterosuperior limbus vertebra identified. IMPRESSION: 1. Prominent umbilical hernia containing fat. 2. No CT evidence for appendicitis. .Donis Pearson MD, MD Date Time Electronically viewed and signed by .Donis Pearson MD, MD on 04/22/2017 23:11 .Gino/
[2017-04-22 23:50] VITALS: BP 110/66; PULSE 60; RESP 20; TEMP 98.5
--- NOTE | 2017-04-23 00:04 | ERD ---
ER Documentation Chief Complaint Date/Time DATE: 04/22/17 TIME: 23:34 Chief Complaint mid abd pain- umbilical hernia HPI 41-year-old male with a history of diabetes presenting with pain around his umbilicus. He states he was driving the car today and turning his head when he suddenly felt a pop. He has had constant pain since, nonradiating, associated with mild nausea but no vomiting. He had a normal bowel movement today but has had diarrhea since this started. He denies any associated fever, chills, dysuria. He has never had this pain before. ROS All systems reviewed and are negative except as per history of present illness. Medications Home Meds Active Scripts Insulin Glargine* (Lantus*) 100 Unit/Ml Soln, 22 UNIT SC QHS for 7 Days, #10 3 Refills Prov:LORY YEUNG MD 01/28/17 Discontinued Scripts Acetaminophen* (Tylophen*) 500 Mg Capsule, 1 CAP PO Q6H Y for PAIN AND OR ELEVATED TEMP, #20 CAP Prov:ZOEY YAN PA-C 04/15/17 Aspirin* (Aspirin* EC) 81 Mg Tablet.dr, 81 MG PO DAILY for 30 Days, #30 Prov:LORY YEUNG MD 01/28/17 Risperidone* (Risperdal*) 1 Mg Tablet, 1 MG PO Q6 Y for AGITATION for 30 Days, # 30 TAB Prov:LORY YEUNG MD 01/28/17 Allergies Allergies: Coded Allergies: No Known Allergies (Verified Allergy, Unknown, 04/22/17) PMhx/Soc Medical and Surgical Hx: pt denies Surgical Hx History of Surgery: No Anesthesia Reaction: No Hx Neurological Disorder: No Hx Respiratory Disorders: No Hx Cardiac Disorders: Yes (HTN, s/p angiogram) Hx Psychiatric Problems: Yes (anxiety) Hx Miscellaneous Medical Probl: Yes (Obesity , DM ) Hx Alcohol Use: No Hx Substance Use: Yes (MARIJUANA ) Hx Tobacco Use: Yes Smoking Status: Never smoker FmHx Family History: No diabetes Physical Exam Vitals Vital Signs Date Time Temp Pulse Resp B/P Pulse Ox O2 Delivery O2 Flow Rate FiO2 04/22/17 20:03 98.5 97 20 134/70 97 Physical Exam Const: Well-appearing, no distress, nontoxic Head: Atraumatic Eyes: Normal Conjunctiva ENT: Normal External Ears, Nose and Mouth. Neck: Full range of motion..~ No meningismus. Resp: Clear to auscultation bilaterally Cardio: Regular rate and rhythm, no murmurs Abd: Soft, umbilical hernia, not reducible, mildly tender to palpation, no overlying skin changes, non distended. Normal bowel sounds Skin: No petechiae or rashes Back: No midline or flank tenderness Ext: No cyanosis, or edema Neur: Awake and alert Psych: Normal Mood and Affect Results 24 hrs Current Medications Medications (Trade) Dose Ordered Sig/Batsheva Route PRN Reason Start Time Stop Time Status Last Admin Dose Admin Ondansetron HCl (Zofran Inj) 4 mg ONCE STAT IV 04/22/17 21:26 04/22/17 21:28 DC 04/22/17 21:47 Fentanyl (Sublimaze) 100 mcg ONCE ONCE IV 04/22/17 21:30 04/22/17 21:31 DC 04/22/17 21:48 Procedures/MDM Patient was given fentanyl and hernia reduction was attempted. There was only a mild give and the defect could not be palpated. However the patient states his pain improved. A follow-up CT scan was done and showed a fat-containing umbilical hernia with no evidence of bowel obstruction. Patient was tolerating fluids by mouth. I think he is stable for discharge at this time with follow- up with his primary care doctor for referral to a surgeon. This was discussed with the patient and he understands the plan. Return precautions were given. Patient was discharged in stable condition. Departure Diagnosis: Primary Impression: Umbilical hernia without obstruction or gangrene Condition: Stable Patient Instructions: Hernia (Inguinal, Ventral, Umbilical) Referrals: [facility] YOU HAVE RECEIVED A MEDICAL SCREENING EXAM AND THE RESULTS INDICATE THAT YOU DO NOT HAVE A CONDITION THAT REQUIRES URGENT TREATMENT IN THE EMERGENCY DEPARTMENT. FURTHER EVALUATION AND TREATMENT OF YOUR CONDITION CAN WAIT UNTIL YOU ARE SEEN IN YOUR DOCTORS OFFICE WITHIN THE NEXT 1-2 DAYS. IT IS YOUR RESPONSIBILITY TO MAKE AN APPOINTMENT FOR FOLOW-UP CARE. IF YOU HAVE A PRIMARY DOCTOR --you should call your primary doctor and schedule an appointment IF YOU DO NOT HAVE A PRIMARY DOCTOR YOU CAN CALL OUR PHYSICIAN REFERRAL HOTLINE AT IF YOU CAN NOT AFFORD TO SEE A PHYSICIAN YOU CAN CHOSE FROM THE FOLLOWING [facility] [address] [facility] [address] [facility]. [facility] [address] [facility] [address] [facility] [address] [facility]. [facility] [address] Additional Instructions: Return to the ER for any worsening symptoms. Follow up with your primary care doctor for a referral to a surgeon to discuss hernia repair. JA PUENTE MD Apr 22, 2017 23:44
== END 2017-04-22 23:50 | disposition home or self-care (01) ==
LOC: E/R 20:00
DX: K42.9 Umbilical hernia without obstruction or gangrene (principal); I10 Essential (primary) hypertension; E11.9 Type 2 diabetes mellitus without complications; E66.9 Obesity, unspecified; R11.0 Nausea; Z68.39 Body mass index [BMI] 39.0-39.9, adult; Z79.4 Long term (current) use of insulin; Z79.82 Long term (current) use of aspirin; Z87.891 Personal history of nicotine dependence
CPT/HCPCS: 74176; J2405; J3010; 96374; 96375

== ENCOUNTER 2017-05-04 20:36 | Emergency (ER) | payer OTHER ==
[~2017-05-04] VITALS: Ht 182.9 cm; Wt 126.0 kg
[~2017-05-04 20:36] MED LIST changes: -ACET500C5 PO; -ASPI-664 PO; -RIS1 PO
[2017-05-04 20:43] VITALS: Ht 182.9 cm; Wt 126.0 kg
[2017-05-04] MEDS ORDERED: SOD CHLORIDE 0.9% 1,000 ML IV STA (21:00)
[2017-05-04] MEDS ORDERED: LORAZEPAM 2 MG INJ IV ONE ×2 (21:00→22:30)
[2017-05-04 21:03] VITALS: TEMP 98.1
[2017-05-04] MEDS ORDERED: ASPI-664 PO (21:15)
[2017-05-04 21:19] LABS: ADD SCAN DIFF NO
[2017-05-04 21:21] LABS: BASOPHILS % 0.3 % (0.0-2.0); EOSINOPHILS # 0.1 10^3/ul (0.0-0.5); EOSINOPHILS % 0.5 % (0.0-7.0); HEMATOCRIT 40.8 % (42.0-52.0); HEMOGLOBIN 13.2 g/dl (14.0-18.0); LYMPHOCYTES # 2.7 10^3/ul (0.8-2.9); LYMPHOCYTES % 23.4 % (15.0-51.0); MEAN CORPUSCULAR HEMOGLOBIN 24.5 pg (29.0-33.0); MEAN CORPUSCULAR HGB CONC 32.4 g/dl (32.0-37.0); MEAN CORPUSCULAR VOLUME 75.7 fl (82.0-101.0); MONOCYTE # 0.7 10^3/ul (0.3-0.9); MONOCYTES % 5.9 % (0.0-11.0); NEUTROPHILS % 69.6 % (39.0-77.0); PLATELET COUNT 369 10^3/UL (140-415); RED BLOOD COUNT 5.39 10^6/ul (4.70-6.10); RED CELL DISTRIBUTION WIDTH 14.8 % (11.5-14.5); WHITE BLOOD COUNT 11.5 10^3/ul (4.8-10.8)
--- NOTE | 2017-05-04 21:35 | RADRPT ---
PROCEDURE: XR Chest AP portable CLINICAL INDICATION: Abdominal pain TECHNIQUE: An AP portable radiograph of the chest was submitted. COMPARISON: 01/29/2017 FINDINGS: Support Hardware: None Cardiovascular: The cardiovascular silhouette appears unremarkable. Lung Velazquez: The lung velazquez appear clear with no nodule, alveolar infiltrate, or interstitial promi nence evident. Pleural Spaces: No pneumothorax or pleural effusion is identified. Osseous Structures: The osseous structures appear intact. Soft Tissues: The soft tissues appear generous. IMPRESSION: Stable and unremarkable portable chest. Physician Claudine Date Time Electronically viewed and signed by Gelacio Pope Physician on 05/04/2017 21:35 RH/
[2017-05-04 21:41] LABS: ALANINE AMINOTRANSFERASE 37 IU/L (13-69); ALBUMIN 4.6 g/dl (3.3-4.9); ALBUMIN/GLOBULIN RATIO 1.35; ALKALINE PHOSPHATASE 70 IU/L (42-121); ANION GAP 16 (8-16); ASPARTATE AMINO TRANSFERASE 26 IU/L (15-46); BILIRUBIN,INDIRECT 0.3 mg/dl (0-1.1); BILIRUBIN,TOTAL 0.3 mg/dl (0.2-1.3); BLOOD UREA NITROGEN 18 mg/dl (7-20); CALCIUM 9.2 mg/dl (8.4-10.2); CARBON DIOXIDE 24 mmol/L (21-31); CHLORIDE 108 mmol/L (97-110); CREATININE 0.96 mg/dl (0.61-1.24); GLUCOSE 96 mg/dl (70-220); POTASSIUM 3.9 mmol/L (3.5-5.1); SODIUM 144 mmol/L (135-144)
[2017-05-04 21:47] LABS: INR 0.96; PROTIME 12.8 Sec (12.2-14.2)
[2017-05-04 21:56] LABS: TROPONIN-I < 0.012 ng/ml (0.00-0.12)
--- NOTE | 2017-05-04 22:03 | RADRPT ---
PROCEDURE: CT Brain without. CLINICAL INDICATION: Pain, concern for bleed. TECHNIQUE: A CT of the brain was performed on multidetector high-resolution CT scanner utilizing a xial sections from the skull base through the vertex without contrast. The scan was reviewed in sof t tissue brain and high frequency resolution bone algorithm windows. Images were reviewed on a high -resolution PACS workstation. One or more the following does reduction techniques were utilized: Aut omated exposure control, adjustment of the mA/ or kV according to patient's size, or use of iterativ e reconstruction technique. The exam CTDI = 43.05 mGy and the DLP = 810.25 mGy-cm. COMPARISON: Brain CT 01/29/2017. FINDINGS: The ventricles and sulci are age-appropriate. There is no intracranial hemorrhage, mass effect or mi dline shift. No abnormal intra-axial or extra-axial fluid collections are seen. The spaulding/white luciana er differentiation is preserved. No acute skull abnormality is noted. The visualized paranasal sinus es are essentially clear. IMPRESSION: 1. No acute intracranial hemorrhage, transcortical infarction or mass effect. RPTAT: HFN .Arnoldo Mendoza MD, MD Date Time Electronically viewed and signed by .Arnoldo Mendoza MD, MD on 05/04/2017 22:03 .N/
[2017-05-04] MEDS ORDERED: LORA1TAB PO (23:53)
--- NOTE | 2017-05-04 23:53 | ERD ---
ER Documentation Chief Complaint Date/Time DATE: 05/04/17 TIME: 23:52 Chief Complaint left side numbness 20 minutes ago w/ dizziness HPI Is a 41-year-old male left-sided numbness to his arm and face 20 minutes ago with associated dizziness. He said it happened in a stressful event where he thought he might lose his job. He has had this weakness on and off for the past few months. No fevers no chills. No other current complaints. ROS All systems reviewed and are negative except as per history of present illness. 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 Neck: Full range of motion..~ No meningismus. Resp: Clear to auscultation bilaterally Cardio: Regular rate and rhythm, no murmurs Abd: Soft, non tender, non distended. Normal bowel sounds Skin: No petechiae or rashes Back: No midline or flank tenderness Ext: No cyanosis, or edema Neur: Awake and alert Psych: Normal Mood and Affect Result Diagram: 05/04/17211405/04/172114 Results 24 hrs Laboratory Tests Test 05/04/17 20:54 05/04/17 21:15 Bedside Glucose 91mg/dL White Blood Count 11.510^3/ul Red Blood Count 5.3910^6/ul Hemoglobin 13.2g/dl Hematocrit 40.8% Mean Corpuscular Volume 75.7fl Mean Corpuscular Hemoglobin 24.5pg Mean Corpuscular Hemoglobin Concent 32.4g/dl Red Cell Distribution Width 14.8% Platelet Count 05785^3/UL Mean Platelet Volume 9.0fl Neutrophils % 69.6% Lymphocytes % 23.4% Monocytes % 5.9% Eosinophils % 0.5% Basophils % 0.3% Nucleated Red Blood Cells % 0.0/100WBC Neutrophils # 8.010^3/ul Lymphocytes # 2.710^3/ul Monocytes # 0.710^3/ul Eosinophils # 0.110^3/ul Basophils # 0.010^3/ul Nucleated Red Blood Cells # 0.010^3/ul Prothrombin Time 12.8Sec Prothrombin Time Ratio 1.0 INR International Normalized Ratio 0.96 Sodium Level 144mmol/L Potassium Level 3.9mmol/L Chloride Level 108mmol/L Carbon Dioxide Level 24mmol/L Anion Gap 16 Blood Urea Nitrogen 18mg/dl Creatinine 0.96mg/dl Glucose Level 96mg/dl Calcium Level 9.2mg/dl Total Bilirubin 0.3mg/dl Direct Bilirubin 0.00mg/dl Indirect Bilirubin 0.3mg/dl Aspartate Amino Transf (AST/SGOT) 26IU/L Alanine Aminotransferase (ALT/SGPT) 37IU/L Alkaline Phosphatase 70IU/L Troponin I < 0.012ng/ml Total Protein 8.0g/dl Albumin 4.6g/dl Globulin 3.40g/dl Albumin/Globulin Ratio 1.35 Lipase 181U/L Current Medications Medications (Trade) Dose Ordered Sig/Batsheva Route PRN Reason Start Time Stop Time Status Last Admin Dose Admin Sodium Chloride (NS) 1,000 ml @ 1,000 mls/hr Q1H STAT IV 05/04/17 21:00 05/04/17 21:59 DC 05/04/17 21:16 Lorazepam (Ativan) 0.5 mg ONCE ONCE IV 05/04/17 21:00 05/04/17 21:01 DC 05/04/17 21:16 Lorazepam (Ativan) 1 mg ONCE ONCE IV 05/04/17 22:30 05/04/17 22:31 DC 05/04/17 22:23 Procedures/MDM EKG: Rate/Rhythm: Normal Sinus Rhythm QRS, ST, T-waves: No changes consistent w/ acute ischemia Impression: No evidence of ischemia or arrhythmia Chest X-ray 1V Interpreted by me: Soft Tissue: No acute abnormalities Bones: No acute abnormalities Mediastinum/Cardiac Silhouette/Lungs: No acute abnormalities CT of the head as well as negative Medical decision-makin-year-old gentleman with anxiety-induced paresthesias. At this point is clinically stable. Symptomology is resolved. Patient be discharged home. Good response to Ativan. Told to return for any return of symptoms. Departure Diagnosis: Primary Impression: Numbness Additional Impression: Anxiety Condition: Stable BRE SARAVIA May 04, 2017 23:53
[2017-05-04 23:59] VITALS: BP 128/71; PULSE 71; RESP 18
== END 2017-05-05 00:01 | disposition home or self-care (01) ==
LOC: E/R 20:36
DX: R20.0 Anesthesia of skin (principal); F41.9 Anxiety disorder, unspecified; R40.2252 Coma scale, best verbal response, oriented, at arrival to emergency department; R40.2142 Coma scale, eyes open, spontaneous, at arrival to emergency department; R40.2362 Coma scale, best motor response, obeys commands, at arrival to emergency department; R10.9 Unspecified abdominal pain; R42 Dizziness and giddiness; Z79.4 Long term (current) use of insulin; Z79.82 Long term (current) use of aspirin
CPT/HCPCS: 36415; 70450; 71010; 80053; 82962; 83690; 84484; 85025; 85610; 93005; 96374; 96376; J2060; J7030; Z7502

== ENCOUNTER 2017-11-26 16:53 | Emergency (ER) | END 2017-11-26 19:37 | disposition home or self-care (01) ==

== ENCOUNTER 2018-02-06 10:18 | Emergency (ER) | END 2018-02-06 12:05 | disposition home or self-care (01) ==

== ENCOUNTER 2018-08-10 11:16 | Emergency (ER) | END 2018-08-10 19:01 | disposition home or self-care (01) ==